=== PATIENT | female | born 1945 | race Caucasian/White ===

== ENCOUNTER 2025-01-19 13:30 | Inpatient (IN) | payer MEDICARE, BC ==
--- NOTE | 2025-01-19 14:13 | ED ---
General Adult HPI - General Stated complaint: Vomiting Time Seen by Provider: 01/19/25 13:35 Source: patient, RN notes reviewed, old records reviewed - History of Present Illness Initial comments: This is an 79-year-old female who presents to the emergency department with her daughter. I saw the patient in the waiting room because there were no rooms available. Patient comes in complaining of vomiting since Saturday. Patient states she was seen at another hospital yesterday was given fluids and antiemetics and she felt better and went home however today she continues to vomit all day and states that she has abdominal pain that is diffuse throughout her abdomen. Patient states she had no imaging done yesterday. Patient denies any fevers or chills patient denies back pain. Patient states she has had multiple surgeries on her abdomen in the past. Has had a cholecystectomy appendectomy and hysterectomy. Patient denies any diarrhea. Daughter mentions the patient has Parkinson's and had a history of lymphoma. - Related Data Home Medications Medication Instructions Recorded Confirmed Fish Oil/Dha/Epa [Fish Oil 1,200 1,200 mg PO AC-LUNCH 04/06/14 04/06/14 mg Fish Oil] Lisinopril-Hctz 20-12.5 mg 1 each PO DAILY 04/06/14 04/06/14 [Zestoretic 20-12.5] Omeprazole [PriLOSEC] 20 mg PO AC-BRKFST 04/06/14 04/06/14 Rivaroxaban [Xarelto] 20 mg PO DAILY 04/06/14 04/06/14 Previous Rx's Medication Instructions Recorded Flecainide [Tambocor] 100 mg PO Q12HR #30 tab 04/08/14 atenoloL [Tenormin] 25 mg PO TID #60 tab 04/08/14 Allergies Allergy/AdvReac Type Severity Reaction Status Date / Time azithromycin AdvReac Rapid Verified 01/19/25 14:38 Heart Rate cephalexin monohydrate AdvReac Nausea & Verified 01/19/25 14:38 [From Keflex] Vomiting Review of Systems ROS Statement: Those systems with pertinent positive or pertinent negative responses have been documented in the HPI. ROS Other: All systems not noted in ROS Statement are negative. Past Medical History Past Medical History: A-Fib/A-Flutter, Chest Pain / Angina, GERD/Reflux, Hypertension, Syncope History of Any Multi-Drug Resistant Organisms: None Reported Past Surgical History: Adenoidectomy, AICD/Pacemaker, Section, Heart Catheterization, Hysterectomy, Tonsillectomy Additional Past Anesthesia/Blood Transfusion Reaction / Comment(s): N/A Type of Cardiac Device: Permanent Pacemaker Device Placement Date:: March 2014 Past Psychological History: No Psychological Hx Reported Past Alcohol Use History: None Reported Past Drug Use History: None Reported - Past Family History Mother Family Medical History: Cancer, Hyperlipidemia, Hypertension, Vascular Disorder General Exam - General Exam Comments Initial Comments: GENERAL: Patient is well-developed and well-nourished. Patient is nontoxic and well- hydrated and is in no acute distress. ENT: Neck is soft and supple. No significant lymphadenopathy is noted. Oropharynx is clear. Moist mucous membranes. Neck has full range of motion without eliciting any pain. EYES: The sclera were anicteric and conjunctiva were pink and moist. Extraocular movements were intact and pupils were equal round and reactive to light. Eyelids were unremarkable. PULMONARY: Unlabored respirations. Good breath sounds bilaterally. No audible rales rhonchi or wheezing was noted. CARDIOVASCULAR: There is a regular rate and rhythm without any murmurs gallops or rubs. ABDOMEN: Diffuse abdominal tenderness SKIN: Skin is clear with no lesions or rashes and otherwise unremarkable. NEUROLOGIC: Patient is alert and oriented x3. Cranial nerves II through XII are grossly intact. Motor and sensory are also intact. Normal speech, volume and content. Symmetrical smile. MUSCULOSKELETAL: Normal extremities with adequate strength and full range of motion. LYMPHATICS: No significant lymphadenopathy is noted PSYCHIATRIC: Normal psychiatric evaluation. Course Vital Signs 01/19/25 14:33 Temperature 97.9 F Pulse Rate 87 Respiratory 20 Rate Blood Pressure 129/69 O2 Sat by Pulse 97 Oximetry Medical Decision Making - Medical Decision Making Was pt. sent in by a medical professional or institution (, PA, RENEWABLE ENERGY CONSULTANT, urgent care, hospital, or correction...) When possible be specific @ -No Did you speak to anyone other than the patient for history (EMS, parent, family, police, friend...)? What history was obtained from this source @ -Daughter gave quite a bit of the history for her mother. Informed us of yesterday's visit to another hospital and the results from that visit Did you review nursing and triage notes (agree or disagree)? Why? @ -I reviewed and agree with nursing and triage notes Were old charts reviewed (outside hosp., previous admission, EMS record, old EKG, old radiological studies, urgent care reports/EKG's, correction records)? Report findings @ -No old charts were reviewed Differential Diagnosis? @ -Differential Abdominal Pain Men: Appendicitis, cholecystitis, diverticulosis, ischemic bowel, pancreatitis, hepatitis, UTI, gastroenteritis, AAA, incarcerated hernia, bowel obstruction, constipation, inflammatory bowel, hepatitis, peptic ulcer disease, splenic infarction, perforated viscus, testicular torsion, this is not meant to be an all-inclusive list EKG interpreted by me (3pts min.). @ -As above X-rays interpreted by me (1pt min.). @ -None done CT interpreted by me (1pt min.). @ -CT of the abdomen pelvis shows a bowel obstruction with a possible mass or inflammation causing the obstruction U/S interpreted by me (1pt. min.). @ -None done What testing was considered but not performed or refused? (CT, X-rays, U/S, labs)? Why? @ -None What meds were considered but not given or refused? Why? @ -None Did you discuss the management of the patient with other professionals (professionals i.e. , PA, RENEWABLE ENERGY CONSULTANT, lab, RT, psych nurse, social service technician, luncheonette operator, teacher, special officer, leather case finisher)? Give summary @ -I spoke with sound physicians agreed to admit the patient admit the patient I consulted surgery Was smoking cessation discussed for >3mins.? @ -No Was critical care preformed (if so, how long)? @ -No Were there social determinants of health that impacted care today? How? (Homelessness, low income, unemployed, alcoholism, drug addiction, transporta tion, low edu. Level, literacy, decrease access to med. care, nursing home, rehab)? @ -No Was there de-escalation of care discussed even if they declined (Discuss DNR or withdrawal of care, Hospice)? DNR status @ -No What co-morbidities impacted this encounter? (DM, HTN, Smoking, COPD, CAD, Cancer, CVA, ARF, Chemo, Hep., AIDS, mental health diagnosis, sleep apnea, morbid obesity)? @ -None Was patient admitted / discharged? Hospital course, mention meds given and route, prescriptions, significant lab abnormalities, going to OR and other pertinent info. @ -Patient had a bowel obstruction on CAT scan so an NG tube was placed patient was given some Reglan for the nausea. And patient will be admitted to [facility] with a surgical consult Undiagnosed new problem with uncertain prognosis? @ -No Drug Therapy requiring intensive monitoring for toxicity (Heparin, Nitro, Insulin, Cardizem)? @ -No Were any procedures done? @ -No Diagnosis/symptom? @ -Small bowel obstruction Acute, or Chronic, or Acute on Chronic? @ -Acute Uncomplicated (without systemic symptoms) or Complicated (systemic symptoms)? @ -Complicate Side effects of treatment? @ -No Exacerbation, Progression, or Severe Exacerbation? @ -No Poses a threat to life or bodily function? How? (Chest pain, [place], [place], pneumonia, PE, COPD, DKA, ARF, appy, cholecystitis, CVA, Diverticulitis, Homicidal, Suicidal, threat to staff... and all critical care pts) @ -Yes this can lead to severe dehydration and perforation - Lab Data Result diagrams: 01/19/25 15:13 01/19/25 15:13 Lab Results 01/19/25 01/19/25 Range/Units 15:13 15:13 WBC 9.4 (3.8-10.6) k/uL RBC 4.91 (3.80-5.40) m/uL Hgb 15.2 (11.4-16.0) gm/dL Hct 41.9 (34.0-46.0) % MCV 85.3 (80.0-100.0) fL MCH 30.9 (25.0-35.0) pg MCHC 36.3 (31.0-37.0) g/dL RDW 12.5 (11.5-15.5) % Plt Count 158 (150-450) k/uL MPV 7.8 Neutrophils % 87 % Lymphocytes % 5 % Monocytes % 7 % Eosinophils % 1 % Basophils % 0 % Neutrophils # 8.2 H (1.3-7.7) k/uL Lymphocytes # 0.5 L (1.0-4.8) k/uL Monocytes # 0.6 (0-1.0) k/uL Eosinophils # 0.1 (0-0.7) k/uL Basophils # 0.0 (0-0.2) k/uL Sodium 133 L (137-145) mmol/L Potassium 3.9 (3.5-5.1) mmol/L Chloride 92 L (98-107) mmol/L Carbon Dioxide 28 (22-30) mmol/L Anion Gap 13 mmol/L BUN 53 H (7-17) mg/dL Creatinine 0.92 (0.52-1.04) mg/dL Est GFR (CKD-EPI)AfAm 68 (>60 ml/min/1.73 sqM) Est GFR (CKD-EPI)NonAf 59 (>60 ml/min/1.73 sqM) Glucose 140 H (74-99) mg/dL Calcium 9.7 (8.4-10.2) mg/dL Total Bilirubin 1.5 H (0.2-1.3) mg/dL AST 35 (14-36) U/L ALT 22 (4-34) U/L Alkaline Phosphatase 57 (38-126) U/L Total Protein 7.9 (6.3-8.2) g/dL Albumin 4.9 (3.5-5.0) g/dL Amylase 80 (30-110) U/L Lipase 218 (23-300) U/L Disposition Clinical Impression: Small bowel obstruction Disposition: ADMITTED IP TO THIS [facility] Referrals: Nathaniel Bermudez MD [Primary Care Provider] - 1-2 days Time of Disposition: 16:26
--- NOTE | 2025-01-19 15:41 | CT ---
EXAMINATION TYPE: CT abdomen pelvis wo con DATE OF EXAM: 01/19/2025 COMPARISON: None CLINICAL INDICATION: Female, 79 years old with history of abdominal pain; PHH, ABDOMINAL PAIN, N,V TECHNIQUE: CT scan of the abdomen and pelvis is performed without oral or IV contrast. CT DLP: 326.[address] CTDI: mGy Automated exposure control for dose reduction was used. FINDINGS: Within the limitations of a non-contrast study, the following observations are made. The lungs are clear. There is surgical absence of the gallbladder. There is no biliary ductal dilatation. There is no organomegaly of the liver, pancreas, spleen or adrenal glands. There are no renal calcifications or hydronephrosis. The caliber of the abdominal aorta is normal and there is no retroperitoneal adenopathy or hemorrhage . The stomach is markedly distended with air and fluid. There are multiple small bowel loops distended with air and fluid down to the level of the pelvis where there is approximately 5 cm segment of marke dly thickened small bowel and appears to be the point of obstruction. Thickened loop is nonspecific a nd could be neoplastic or inflammatory in nature. There is no inflammatory change in the surrounding mesentery. Raising the suspicion for neoplasm. There is no pelvic mass, free fluid, abscess or adenopathy. There is marked degenerative disease at the L3-4 level. There is an ill-defined 8.5 linear sclerotic density in the upper sacrum. IMPRESSION: 1. Marked Distal small bowel obstruction secondary to a 5 cm segment of thickened small bowel wall po ssibly neoplastic or inflammatory in nature. 2. 8.5 mm sclerotic density in the upper sacrum which could represent a small bone island but if ther e is a primary neoplasm could represent metastatic disease. [facility], , 01/19/2025 3:39 PM
[2025-01-19 15:48] LABS: Basophils % (A) 0 %; Eosinophils # (A) 0.1 k/uL (0-0.7); Eosinophils % (A) 1 %; HCT 41.9 % (34.0-46.0); HGB 15.2 gm/dL (11.4-16.0); Lymphocytes # (A) 0.5 k/uL (1.0-4.8); Lymphocytes % (A) 5 %; MCH 30.9 pg (25.0-35.0); MCHC 36.3 g/dL (31.0-37.0); MCV 85.3 fL (80.0-100.0); Mean Platelet Volume 7.8; Monocytes # (A) 0.6 k/uL (0-1.0); Monocytes % (A) 7 %; Neutrophils # (A) 8.2 k/uL (1.3-7.7); Neutrophils % (A) 87 %; Platelet Count 158 k/uL (150-450); RBC 4.91 m/uL (3.80-5.40); RDW 12.5 % (11.5-15.5); WBC 9.4 k/uL (3.8-10.6)
[2025-01-19 15:55] LABS: ALT 22 U/L (4-34); AST 35 U/L (14-36); African American GFR (CKD) 68 (>60 ml/min/1.73 sqM); Albumin 4.9 g/dL (3.5-5.0); Alkaline Phosphatase 57 U/L (38-126); Amylase 80 U/L (30-110); Anion Gap 13 mmol/L; Blood Urea Nitrogen 53 mg/dL (7-17); Calcium 9.7 mg/dL (8.4-10.2); Carbon Dioxide 28 mmol/L (22-30); Chloride 92 mmol/L (98-107); Glucose 140 mg/dL (74-99); Lipase 218 U/L (23-300); Non-African American GFR(CKD) 59 (>60 ml/min/1.73 sqM); Potassium 3.9 mmol/L (3.5-5.1); Sodium 133 mmol/L (137-145); Total Bilirubin 1.5 mg/dL (0.2-1.3); Total Protein 7.9 g/dL (6.3-8.2)
--- NOTE | 2025-01-19 16:40 | XR ---
EXAMINATION TYPE: XR chest 1V confirm line plcmt DATE OF EXAM: 01/19/2025 4:35 PM COMPARISON: CT abdomen and pelvis 01/19/2025 TECHNIQUE: XR chest 1V confirm line plcmt Portable AP radiograph of the chest. CLINICAL INDICATION:Female, 79 years old with history of NG placement; FINDINGS: Lungs/Pleura: There is no evidence of pleural effusion, focal consolidation, or pneumothorax. Pulmonary vascularity: Unremarkable. Heart/mediastinum: Cardiomediastinal silhouette is unremarkable. Atherosclerotic calcifications are seen in the aorta. Two lead cardiac conduction device overlying the left hemithorax with lead tips pr ojecting over the right ventricle and right atrium. Musculoskeletal: No acute osseous pathology. Other findings: None Lines/Tubes: Nasogastric tube with its distal tip and side-port projecting under the diaphragm and projecting over the gastric lumen. IMPRESSION: NG tube in appropriate position. [facility], , 01/19/2025 4:38 PM
[2025-01-19] MEDS: METOCLOPRAMIDE 5 MG/ML 2 ML VIAL IVP STA (16:45)
[2025-01-19] MEDS: SODIUM CHLORIDE 0.9% 1,000 ML IV STA (16:46)
[2025-01-19] MEDS ORDERED: DEXTROSE 50% SYRINGE 50 ML IVP PRN ×2 (17:15)
--- NOTE | 2025-01-19 17:15 | P.HPIM ---
History of Present Illness H&P Date: 01/19/25 History of Presenting Illness: Patient is a pleasant 79-year-old female with a past medical history of atrial fibrillation/flutter no longer on anticoagulation, CAD, AICD placement, hypertension, Parkinson's disease, lymphoma, and GERD. She presented to the emergency department with a chief complaint of intractable nausea and vomiting. Patient reports her last bowel movement was on 01/13/2025 and she began intractable vomiting on 01/15/2025 and has not been able to hold down any food or fluids since. In addition patient reports diffuse abdominal pain worse upon palpation. She denies having any fevers, chills, headache, lightheadedness, dizziness, chest pain, palpitations, shortness of breath, or experiencing any difficulties with her urinary function. Patient denies history of previous bowel obstruction but does report history of chronic constipation. Upon arrival to our facility, patient underwent evaluation in the emergency department. Vital signs upon arrival show blood pressure 129/69, heart rate 87, respiratory rate 20, temp 97.9 F, and SpO2 of 97% on room air. CT abdomen and pelvis was completed showing marked distal small bowel obstruction secondary to a 5 cm segment of thickened small bowel wall possibly neoplastic or inflammatory in nature and an 8.5 mm sclerotic density in the upper sacrum which could represent a small bone island but if there is a primary neoplasm could represent metastatic disease. Labs were completed and reviewed. CBC unremarkable. BMP showing hyponatremia with sodium of 133 and metabolic alkalosis with chloride of 92, bicarb of 28, and anion gap of 13. BUN elevated at 53. Blood glucose 140. Liver profile showing elevated total bili of 1.5 otherwise normal findings. Amylase and lipase normal findings. Patient admitted under services with consultation to general surgery. Review of systems: Pertinent positives and negatives as discussed in HPI, a complete review of systems was performed and all other systems are negative. Physical exam: Vital signs reviewed and stable. General: Nontoxic, no distress and appears stated age. Derm: Skin warm and dry, normal coloration for ethnicity. Head: Atraumatic, normocephalic and symmetric. Eyes: EOM's intact, no lid lag, and anicteric sclera Mouth: no lip lesions, mucus membranes moist Cardiovascular: regular rate and rhythm with normal S1S2, systolic murmur, positive posterior tibial pulses bilaterally, and cap refill < 2 seconds. Lungs: Respirations even, regular, and unlabored on room air. Lungs CTA bilaterally, no rhonchi, no rales, no wheezing, and no accessory muscle usage. Abdominal: soft distended with diffuse tenderness upon palpation , no guarding, no appreciable organomegaly Ext: ROM intact. No gross muscle atrophy, no edema, no contractures Neuro: Speech clear, face symmetrical and CN II-XII grossly intact with no noted focal neuro deficits. Parkinsonian tremor bilateral upper extremities worse in right upper extremity Psych: Alert and oriented to person, place, time, and situation. Appropriate and pleasant affect. Assessment and Plan of Care: Small bowel obstruction Intractable nausea and vomiting, secondary to above General Surgery consulted, discussed in detail with Dr. Veras. -Order placed for insertion of NG tube to low intermittent suction. -Chest x-ray completed to verify placement. -Symptomatic care and pain management. -Compazine 10 mg IVP as needed for nausea or vomiting. -Continue gentle IV fluid hydration with 0.9% normal saline at 100 cc/h. -Glycemic protocol with Accu-Cheks every 6 hours while NPO. Paroxysmal atrial fibrillation/flutter CAD Status post AICD placement -Patient no longer on anticoagulation states she was taken off by her PCP. Continue daily medication regimen with flecainide 100 mg every 12 hours and atenolol 25 mg twice daily. Parkinson's disease -Continue Neupro 8 mg every 24 hour patch transdermally Hypertension -Continue atenolol 25 mg twice daily and lisinoprilhydrochlorothiazide 20-12.5 mg daily. Hyperlipidemia -Continue pravastatin 10 mg daily. Data and imaging reviewed: As stated above in HPI The patient is admitted with an anticipated greater than 2 midnight stay for evaluation of small bowel obstruction CODE STATUS: Full code DVT prophylaxis: Lovenox Discussed with: Patient, patient's daughter, ED physician, and general surgeon Anticipated discharge date: Pending clinical course Anticipated discharge place: Pending clinical course Patient was seen independently by Nurse Practitioner. This document was prepared using [employer] dictation software. Please allow for errors in title insurance examiner while rare they do occur. Leonardo Grover NP rendered care for this patient independently, reviewed the findings and plan as documented in the note above and agree with plan. I did not physically speak with or examine the patient on this date. Past Medical History Past Medical History: A-Fib/A-Flutter, Chest Pain / Angina, GERD/Reflux, Hype rtension, Syncope Additional Past Medical History / Comment(s): lymphoma 2014, bradycardia History of Any Multi-Drug Resistant Organisms: None Reported Past Surgical History: Adenoidectomy, AICD/Pacemaker, Section, Heart Catheterization, Hysterectomy, Tonsillectomy Additional Past Anesthesia/Blood Transfusion Reaction / Comment(s): N/A Type of Cardiac Device: Permanent Pacemaker Device Placement Date:: March 2014 Past Psychological History: No Psychological Hx Reported Past Alcohol Use History: None Reported Past Drug Use History: None Reported - Past Family History Mother Family Medical History: Cancer, Hyperlipidemia, Hypertension, Vascular Disorder Medications and Allergies Home Medications Medication Instructions Recorded Confirmed Type Lisinopril-Hctz 20-12.5 mg 1 tab PO DAILY 04/06/14 01/19/25 History [Zestoretic 20-12.5] Omeprazole [PriLOSEC] 20 mg PO DAILY 04/06/14 01/19/25 History Flecainide [Tambocor] 100 mg PO Q12HR #30 tab 04/08/14 01/19/25 Rx Aspirin EC [Ecotrin Low Dose] 81 mg PO DAILY 01/19/25 01/19/25 History Meclizine [Antivert] 12.5 mg PO TID PRN 01/19/25 01/19/25 History Multivit with Calcium,Iron,Min 1 tab PO DAILY 01/19/25 01/19/25 History [Women's Multivitamin] Ondansetron [Ondansetron ODT] 4 mg PO BID PRN 01/19/25 01/19/25 History Pravastatin Sodium [Pravachol] 10 mg PO DAILY 01/19/25 01/19/25 History Rotigotine (Neupro) 8mg/24 Hour 1 patch TRANSDERM DAILY 01/19/25 01/19/25 History Patch atenoloL [Tenormin] 25 mg PO BID 01/19/25 01/19/25 History Allergies Allergy/AdvReac Type Severity Reaction Status Date / Time azithromycin AdvReac Rapid Verified 01/19/25 17:22 Heart Rate cephalexin monohydrate AdvReac Nausea & Verified 01/19/25 17:22 [From Keflex] Vomiting simvastatin AdvReac Unknown Verified 01/19/25 17:22 Physical Exam Vitals: Vital Signs Temp Pulse Resp BP Pulse Ox 01/19/25 16:40 72 20 116/55 96 01/19/25 14:33 97.9 F 87 20 129/69 97 Intake and Output 01/19/25 01/19/25 01/19/25 06:59 14:59 22:59 Other: Weight 54.431 kg Results CBC & Chem 7: 01/19/25 15:13 01/19/25 15:13 Labs: Abnormal Lab Results - Last 24 Hours (Table) 01/19/25 01/19/25 Range/Units 15:13 15:13 Neutrophils # 8.2 H (1.3-7.7) k/uL Lymphocytes # 0.5 L (1.0-4.8) k/uL Sodium 133 L (137-145) mmol/L Chloride 92 L (98-107) mmol/L BUN 53 H (7-17) mg/dL Glucose 140 H (74-99) mg/dL Total Bilirubin 1.5 H (0.2-1.3) mg/dL
[2025-01-19] MEDS: SODIUM CHLORIDE 0.9% 1,000 ML IV ONE (18:26)
[2025-01-19] MEDS ORDERED: MORPHINE SULFATE 2 MG/ML SYRINGE IV PRN (19:39)
[2025-01-19] MEDS: FLECAINIDE 50 MG TAB PO SCH (21:34)
[2025-01-19] MEDS: atenoloL 25 MG TAB PO SCH (21:34)
[2025-01-20] MEDS: ACETAMINOPHEN IV (For NPO) 1,000 MG in EMPTY BAG 1 BAG IVPB SCH (00:01)
[2025-01-20 00:03] LABS: Glucose,Whole Blood 99 mg/dL (70-110)
[2025-01-20 05:54] LABS: Glucose,Whole Blood 101 mg/dL (70-110)
--- NOTE | 2025-01-20 07:01 | P.GSCN ---
History of Present Illness Reason for Consult: small bowel obstruction History of present illness: patient is an 79-year-old female with a significant past medical history of appendectomy, cholecystectomy, hysterectomy presenting with abdominal pain for the last several days with associated nausea and vomiting. She was seen at an outside facility and they recommended Zofran which did not help. Patient is now presenting to the emergency department for further evaluation. Computed tomography scan of the abdomen and pelvis demonstrates dilated loops of bowel with a specific segment that is thickened. She currently has a nasogastric tube in and feels much better she currently denies nausea, vomiting, fevers, chills, shortness of breath or chest pain. Past Medical History Past Medical History: Chest Pain / Angina, GERD/Reflux, Hypertension, Syncope Additional Past Medical History / Comment(s): lymphoma 2013, bradycardia History of Any Multi-Drug Resistant Organisms: None Reported Past Surgical History: Adenoidectomy, Section, Heart Catheterization, Hysterectomy, Tonsillectomy Additional Past Anesthesia/Blood Transfusion Reaction / Comm: N/A Type of Cardiac Device: Permanent Pacemaker Device Placement Date:: March 2014 Past Psychological History: No Psychological Hx Reported Smoking Status: Never smoker Past Alcohol Use History: None Reported Past Drug Use History: None Reported - Past Family History Mother Family Medical History: Cancer, Hyperlipidemia, Hypertension, Vascular Disorder Medications and Allergies Home Medications Medication Instructions Recorded Confirmed Type Lisinopril-Hctz 20-12.5 mg 1 tab PO DAILY 04/06/14 01/19/25 History [Zestoretic 20-12.5] Omeprazole [PriLOSEC] 20 mg PO DAILY 04/06/14 01/19/25 History Flecainide [Tambocor] 100 mg PO Q12HR #30 tab 04/08/14 01/19/25 Rx Aspirin EC [Ecotrin Low Dose] 81 mg PO DAILY 01/19/25 01/19/25 History Meclizine [Antivert] 12.5 mg PO TID PRN 01/19/25 01/19/25 History Multivit with Calcium,Iron,Min 1 tab PO DAILY 01/19/25 01/19/25 History [Women's Multivitamin] Ondansetron [Ondansetron ODT] 4 mg PO BID PRN 01/19/25 01/19/25 History Pravastatin Sodium [Pravachol] 10 mg PO DAILY 01/19/25 01/19/25 History Rotigotine (Neupro) 8mg/24 Hour 1 patch TRANSDERM DAILY 01/19/25 01/19/25 History Patch atenoloL [Tenormin] 25 mg PO BID 01/19/25 01/19/25 History Allergies Allergy/AdvReac Type Severity Reaction Status Date / Time azithromycin AdvReac Rapid Verified 01/19/25 17:22 Heart Rate cephalexin monohydrate AdvReac Nausea & Verified 01/19/25 17:22 [From Keflex] Vomiting simvastatin AdvReac Unknown Verified 01/19/25 17:22 Surgical - Exam Osteopathic Statement: *. No significant issues noted on an osteopathic structural exam other than those noted in the History and Physical/Consult. Vital Signs Temp Pulse Resp BP Pulse Ox 97.9 F 87 20 129/69 97 01/19/25 14:33 01/19/25 14:33 01/19/25 14:33 01/19/25 14:33 01/19/25 14:33 general no acute distress alert and oriented 3 Cardiovascular regular rate and rhythm Pulmonary nonlabored breathing Abdomen is soft, distended, mildly tender to palpation, no guarding or rebound tenderness Results - Labs 01/19/25 15:13 01/19/25 15:13 Abnormal Lab Results - Last 24 Hours (Table) 01/19/25 01/19/25 Range/Units 15:13 15:13 Neutrophils # 8.2 H (1.3-7.7) k/uL Lymphocytes # 0.5 L (1.0-4.8) k/uL Sodium 133 L (137-145) mmol/L Chloride 92 L (98-107) mmol/L BUN 53 H (7-17) mg/dL Glucose 140 H (74-99) mg/dL Total Bilirubin 1.5 H (0.2-1.3) mg/dL Diabetes panel 01/19/25 Range/Units 15:13 Sodium 133 L (137-145) mmol/L Potassium 3.9 (3.5-5.1) mmol/L Chloride 92 L (98-107) mmol/L Carbon Dioxide 28 (22-30) mmol/L BUN 53 H (7-17) mg/dL Creatinine 0.92 (0.52-1.04) mg/dL Glucose 140 H (74-99) mg/dL Calcium 9.7 (8.4-10.2) mg/dL AST 35 (14-36) U/L ALT 22 (4-34) U/L Alkaline Phosphatase 57 (38-126) U/L Total Protein 7.9 (6.3-8.2) g/dL Albumin 4.9 (3.5-5.0) g/dL Calcium panel 01/19/25 Range/Units 15:13 Calcium 9.7 (8.4-10.2) mg/dL Albumin 4.9 (3.5-5.0) g/dL Pituitary panel 01/19/25 Range/Units 15:13 Sodium 133 L (137-145) mmol/L Potassium 3.9 (3.5-5.1) mmol/L Chloride 92 L (98-107) mmol/L Carbon Dioxide 28 (22-30) mmol/L BUN 53 H (7-17) mg/dL Creatinine 0.92 (0.52-1.04) mg/dL Glucose 140 H (74-99) mg/dL Calcium 9.7 (8.4-10.2) mg/dL Adrenal panel 01/19/25 Range/Units 15:13 Sodium 133 L (137-145) mmol/L Potassium 3.9 (3.5-5.1) mmol/L Chloride 92 L (98-107) mmol/L Carbon Dioxide 28 (22-30) mmol/L BUN 53 H (7-17) mg/dL Creatinine 0.92 (0.52-1.04) mg/dL Glucose 140 H (74-99) mg/dL Calcium 9.7 (8.4-10.2) mg/dL Total Bilirubin 1.5 H (0.2-1.3) mg/dL AST 35 (14-36) U/L ALT 22 (4-34) U/L Alkaline Phosphatase 57 (38-126) U/L Total Protein 7.9 (6.3-8.2) g/dL Albumin 4.9 (3.5-5.0) g/dL Assessment and Plan Assessment: 79-year-old female with a small bowel obstruction continue nasogastric tube suction Decompression for today and small bowel follow-through tomorrow a.m. Okay for ice chips Time with Patient: Greater than 30
[2025-01-20] MEDS: LISINOPRIL-HCTZ 20-12.5 MG 1 EACH TAB PO SCH (11:46)
[2025-01-20] MEDS: ENOXAPARIN 40 MG/0.4 ML SYRINGE SQ SCH (11:47)
[2025-01-20] MEDS: PRAVASTATIN SODIUM 20 MG TAB PO SCH (12:02)
[2025-01-20 12:12] LABS: Glucose,Whole Blood 97 mg/dL (70-110)
[2025-01-20] MEDS: ROTIGOTINE TRANSDERM SCH ×2 (12:23→12:25)
[2025-01-20 18:08] LABS: Glucose,Whole Blood 76 mg/dL (70-110)
--- NOTE | 2025-01-20 18:11 | P.PN ---
Subjective Progress Note Date: 01/20/25 Hospital course: Patient is a pleasant 79-year-old female with a past medical history of atrial fibrillation/flutter no longer on anticoagulation, CAD, AICD placement, hypertension, Parkinson's disease, lymphoma, and GERD. She presented to the emergency department with a chief complaint of intractable nausea and vomiting. Patient reports her last bowel movement was on 01/13/2025 and she began intractable vomiting on 01/15/2025 and has not been able to hold down any food or fluids since. In addition patient reports diffuse abdominal pain worse upon palpation. She denies having any fevers, chills, headache, lightheadedness, dizziness, chest pain, palpitations, shortness of breath, or experiencing any difficulties with her urinary function. Patient denies history of previous bowel obstruction but does report history of chronic constipation. Upon arrival to our facility, patient underwent evaluation in the emergency department. Vital signs upon arrival show blood pressure 129/69, heart rate 87, respiratory rate 20, temp 97.9 F, and SpO2 of 97% on room air. CT abdomen and pelvis was completed showing marked distal small bowel obstruction secondary to a 5 cm segment of thickened small bowel wall possibly neoplastic or inflammatory in nature and an 8.5 mm sclerotic density in the upper sacrum which could represent a small bone island but if there is a primary neoplasm could represent metastatic disease. Labs were completed and reviewed. CBC unremarkable. BMP showing hyponatremia with sodium of 133 and metabolic alkalosis with chloride of 92, bicarb of 28, and anion gap of 13. BUN elevated at 53. Blood glucose 140. Liver profile showing elevated total bili of 1.5 otherwise normal findings. Amylase and lipase normal findings. Patient admitted under services with consultation to general surgery. Physical exam: Patient seen and fully evaluated at bedside this morning. She was sitting up in chair at bedside visiting with her daughter. Patient reports abdominal pain is improving. She denies any further episodes of nausea or vomiting. Denies passing flatus or having a bowel movement. Blood glucose levels 90s, will change IV fluids from normal saline to D5.45. Vital signs reviewed and stable. General: Nontoxic, no distress and appears stated age. Derm: Skin warm and dry, normal coloration for ethnicity. Head: Atraumatic, normocephalic and symmetric. Eyes: EOM's intact, no lid lag, and anicteric sclera Mouth: no lip lesions, mucus membranes moist Cardiovascular: regular rate and rhythm with normal S1S2, systolic murmur, p ositive posterior tibial pulses bilaterally, and cap refill < 2 seconds. Lungs: Respirations even, regular, and unlabored on room air. Lungs CTA bilaterally, no rhonchi, no rales, no wheezing, and no accessory muscle usage. Abdominal: soft distended with tenderness upon palpation to right lower quadrant and epigastric region, no guarding, no appreciable organomegaly. NG tube in place to low intermittent suction. Ext: ROM intact. No gross muscle atrophy, no edema, no contractures Neuro: Speech clear, face symmetrical and CN II-XII grossly intact with no noted focal neuro deficits. Parkinsonian tremor bilateral upper extremities worse in right upper extremity Psych: Alert and oriented to person, place, time, and situation. Appropriate and pleasant affect. Assessment and Plan of Care: Small bowel obstruction Intractable nausea and vomiting, secondary to above General Surgery consulted, discussed in detail with Dr. Veras. -Order placed for insertion of NG tube to low intermittent suction. -Chest x-ray completed to verify placement. -Symptomatic care and pain management. -Compazine 10 mg IVP as needed for nausea or vomiting. -Continue gentle IV fluid hydration with D5.45 at 100 cc/h -Glycemic protocol with Accu-Cheks every 6 hours while NPO. Paroxysmal atrial fibrillation/flutter CAD Status post AICD placement -Patient no longer on anticoagulation states she was taken off by her PCP. Continue daily medication regimen with flecainide 100 mg every 12 hours and atenolol 25 mg twice daily. Parkinson's disease -Continue Neupro 8 mg every 24 hour patch transdermally Hypertension -Continue atenolol 25 mg twice daily and lisinoprilhydrochlorothiazide 20-12.5 mg daily. Hyperlipidemia -Continue pravastatin 10 mg daily. Data and imaging reviewed: Labs reviewed. CBC unremarkable. BMP showing hyponatremia with sodium of 133 and metabolic alkalosis with chloride of 92, bicarb of 28, and anion gap of 13. BUN elevated at 53. Blood glucose 140. Liver profile showing elevated total bili of 1.5 otherwise normal findings. Amylase and lipase normal findings. Vital signs reviewed. Blood pressure 158/70, heart rate 67, respiratory rate 13, temp 98.3 F, and SpO2 of 96% on room air. CODE STATUS: Full code DVT prophylaxis: Lovenox Discussed with: Patient, patient's daughter, and general surgeon Anticipated discharge date: Pending clinical course Anticipated discharge place: Pending clinical course Patient was seen independently by Nurse Practitioner. This document was prepared using [employer] dictation software. Please allow for errors in transfer agent while rare they do occur. Leonardo Grover VESSEL MANAGER rendered care for this patient independently, reviewed the findings and plan as documented in the note above and agree with plan. I did not physically speak with or examine the patient on this date. Objective - Vital Signs Vital signs: Vital Signs Temp 98.3 F 01/20/25 07:30 Pulse 67 01/20/25 07:30 Resp 13 01/20/25 07:30 BP 158/70 01/20/25 07:30 Pulse Ox 96 01/20/25 07:30 FiO2 Intake & Output 01/19/25 01/20/25 01/20/25 18:59 06:59 18:59 Output Total 100 Balance -100 Weight 54.431 kg 54.431 kg Output: Gastric Drainage 100 Other: # Voids 1 - Labs CBC & Chem 7: 01/19/25 15:13 01/19/25 15:13 Labs: Abnormal Lab Results - Last 24 Hours (Table) 01/19/25 01/19/25 Range/Units 15:13 15:13 Neutrophils # 8.2 H (1.3-7.7) k/uL Lymphocytes # 0.5 L (1.0-4.8) k/uL Sodium 133 L (137-145) mmol/L Chloride 92 L (98-107) mmol/L BUN 53 H (7-17) mg/dL Glucose 140 H (74-99) mg/dL Total Bilirubin 1.5 H (0.2-1.3) mg/dL
[2025-01-20] MEDS: DEXTROSE 5%-0.45% NACL 1,000 ML IV SCH (18:17)
[2025-01-21 00:07] LABS: Glucose,Whole Blood 117 mg/dL (70-110)
[2025-01-21 06:09] LABS: Glucose,Whole Blood 124 mg/dL (70-110)
[2025-01-21 09:11] LABS: HCT 34.5 % (37.2-46.3); HGB 11.7 g/dL (12.0-15.0); MCH 29.3 pg (27.0-32.0); MCHC 33.9 g/dL (32.0-37.0); MCV 86.3 FL (80.0-97.0); Mean Platelet Volume 10.9 FL (9.5-12.2); NRBC Per 100 WBC 0 X 10*3/uL (0.00-0.01); Platelet Count 174 X 10*3/uL (140-440); RDW 12.5 % (11.5-14.5); WBC 6.94 X 10*3/uL (4.50-10.00)
[2025-01-21 09:29] LABS: ALT 13 U/L (8-44); AST 22 U/L (13-35); Albumin 3.6 g/dL (3.8-4.9); Albumin/Globulin Ratio 1.89 Ratio (1.60-3.17); Alkaline Phosphatase 49 U/L (41-126); BUN/Creat Ratio 38.88 Ratio (12.00-20.00); Blood Urea Nitrogen 31.1 mg/dL (9.0-27.0); Calcium 8.5 mg/dL (8.7-10.3); Carbon Dioxide 28.7 mmol/L (21.6-31.8); Chloride 100 mmol/L (96-109); Globulin 1.9 g/dL (1.6-3.3); Glucose 125 mg/dL (70-110); Magnesium 2.1 mg/dL (1.5-2.4); Potassium 3.1 mmol/L (3.5-5.5); Sodium 138 mmol/L (135-145); Total Bilirubin 0.7 mg/dL (0.3-1.2); Total Protein 5.5 g/dL (6.2-8.2)
[2025-01-21 12:14] LABS: Glucose,Whole Blood 134 mg/dL (70-110)
[2025-01-21] MEDS: PROCHLORPERAZINE INJ 10 MG/2 ML VIAL IVP PRN (12:20)
[2025-01-21] MEDS: POTASSIUM CHLORIDE 40 MEQ in WATER FOR INJECTION 1 100ML.BAG IVPB STA (12:26)
--- NOTE | 2025-01-21 14:41 | FL ---
EXAMINATION TYPE: FL small bowel follow through DATE OF EXAM: 01/21/2025 COMPARISON: CT 01/19/2025 CLINICAL INDICATION: Female, 79 years old with history of follow up on SBO; PHH, distention and pain TECHNIQUE: A single contrast small bowel follow through is performed utilizing barium. 12 images are submitted. Total fluoroscopy time: None. Serial abdominal radiographs were obtained. FINDINGS: [employer] image of the abdomen shows small bowel in the upper abdomen dilated up to 4.1 cm. In comparison to 4.[address] of 01/19/2025. Cholecystectomy clips. Of note, the NG tube is short, tip just above t he junction. It be further advanced into the stomach. The small bowel study shows mildly delayed transit to colon at 3.5 hours. Upper abdominal small bowel loops are dilated up to 4.5 cm. Stomach is also dilated. Incidental diver ticulum of the second portion of the duodenum. The lower small bowel loops showing more normal caliber. Unable to clearly identify the transition po int. At 2.5 hours, the patient had to be returned to her room due to nausea and vomiting. IMPRESSION: 1. Mildly delayed small bowel transit time with upper and mid abdominal small bowel loops dilated up to 4.5 cm. The stomach is also dilated. As contrast has made it to the colon at 3.5 hours, we suspect a resolving small bowel obstruction. Appropriate follow-up recommended. 2. Note that the NG tube is short, tip just above the GE junction. Consider further advancement into the stomach. [facility], , 01/21/2025 2:39 PM
--- NOTE | 2025-01-21 14:59 | P.PN ---
Subjective Progress Note Date: 01/21/25 SURGICAL PROGRESS NOTE CHIEF COMPLAINT: Small bowel obstruction HISTORY OF PRESENT ILLNESS: Patient is lethargic after the small bowel follow- through. After the imaging patient was having multiple episodes of vomiting. She received Compazine. The vomiting has stopped. She was vomiting past NG tube. NG tube with only 100 mL output through the night. Small bowel follow- through completed results reported mildly delayed small bowel transit time with upper and mid abdominal small bowel loops dilated up to 4.5 cm. Stomach also dilated. Contrast has made it to the colon at 3.5 hours. Suspect resolving small bowel obstruction. NG tube is short just above GE junction. Nursing staff is advancing NG tube. Afebrile. WBC is 6.94 Hgb 11.7 potassium is 3.1 PHYSICAL EXAM: VITAL SIGNS: Reviewed. GENERAL: Lethargic ABDOMEN: Soft. Stomach is distended. Mild tenderness with palpation diffuse. No guarding. No rebound. ASSESSMENT: 1. Small bowel obstruction. Small bowel follow-through reporting suspected resolving small bowel obstruction PLAN: -Continue NG tube for decompression -Continue antiemetics -Continue IV fluids -Potassium is being replaced -Continue to monitor Physician Chef Concierge note has been reviewed by physician. Signing provider agrees with the documented findings, assessment, and plan of care. Objective - Vital Signs Vital signs: Vital Signs Temp 98.3 F 01/21/25 11:20 Pulse 78 01/21/25 11:20 Resp 16 01/21/25 11:20 BP 174/79 01/21/25 11:20 Pulse Ox 99 01/21/25 11:20 FiO2 Intake & Output 01/20/25 01/21/25 01/21/25 18:59 06:59 18:59 Intake Total 240 Output Total 100 Balance 240 -100 Intake: Oral 240 Output: Gastric Drainage 100 Other: # Voids 3 2 5 - Labs CBC & Chem 7: 01/21/25 05:16 01/21/25 05:16 Labs: Abnormal Lab Results - Last 24 Hours (Table) 01/21/25 01/21/25 01/21/25 Range/Units 00:05 05:16 05:16 RBC 4.00 L (4.10-5.20) X 10*6/uL Hgb 11.7 L (12.0-15.0) g/dL Hct 34.5 L (37.2-46.3) % Potassium 3.1 L (3.5-5.5) mmol/L BUN 31.1 H (9.0-27.0) mg/dL BUN/Creatinine Ratio 38.88 H (12.00-20.00) Ratio Glucose 125 H (70-110) mg/dL POC Glucose (mg/dL) 117 H (70-110) mg/dL Calcium 8.5 L (8.7-10.3) mg/dL Total Protein 5.5 L (6.2-8.2) g/dL Albumin 3.6 L (3.8-4.9) g/dL 01/21/25 01/21/25 Range/Units 06:07 12:12 RBC (4.10-5.20) X 10*6/uL Hgb (12.0-15.0) g/dL Hct (37.2-46.3) % Potassium (3.5-5.5) mmol/L BUN (9.0-27.0) mg/dL BUN/Creatinine Ratio (12.00-20.00) Ratio Glucose (70-110) mg/dL POC Glucose (mg/dL) 124 H 134 H (70-110) mg/dL Calcium (8.7-10.3) mg/dL Total Protein (6.2-8.2) g/dL Albumin (3.8-4.9) g/dL
[2025-01-21 17:26] LABS: Glucose,Whole Blood 111 mg/dL (70-110)
--- NOTE | 2025-01-21 18:40 | P.PN ---
Subjective Progress Note Date: 01/21/25 Hospital course: Patient is a pleasant 79-year-old female with a past medical history of atrial fibrillation/flutter no longer on anticoagulation, CAD, AICD placement, hypertension, Parkinson's disease, lymphoma, and GERD. She presented to the emergency department with a chief complaint of intractable nausea and vomiting. Patient reports her last bowel movement was on 01/13/2025 and she began intractable vomiting on 01/15/2025 and has not been able to hold down any food or fluids since. In addition patient reports diffuse abdominal pain worse upon palpation. She denies having any fevers, chills, headache, lightheadedness, dizziness, chest pain, palpitations, shortness of breath, or experiencing any difficulties with her urinary function. Patient denies history of previous bowel obstruction but does report history of chronic constipation. Upon arrival to our facility, patient underwent evaluation in the emergency department. Vital signs upon arrival show blood pressure 129/69, heart rate 87, respiratory rate 20, temp 97.9 F, and SpO2 of 97% on room air. CT abdomen and pelvis was completed showing marked distal small bowel obstruction secondary to a 5 cm segment of thickened small bowel wall possibly neoplastic or inflammatory in nature and an 8.5 mm sclerotic density in the upper sacrum which could represent a small bone island but if there is a primary neoplasm could represent metastatic disease. Labs were completed and reviewed. CBC unremarkable. BMP showing hyponatremia with sodium of 133 and metabolic alkalosis with chloride of 92, bicarb of 28, and anion gap of 13. BUN elevated at 53. Blood glucose 140. Liver profile showing elevated total bili of 1.5 otherwise normal findings. Amylase and lipase normal findings. Patient admitted under services with consultation to general surgery. Physical exam: Patient seen and fully evaluated at bedside upon return from small bowel follow- through. Patient reports feeling miserable at this time. She reports diffuse abdominal pain and has had severe nausea with 4 episodes of projectile vomiting since returning from procedure. Patient provided with pain medication and antiemetic by RN. Discussed plan of care with patient's daughter at bedside and all questions answered at this time. Called and notified general surgery PA of patient's complaints since returning from small bowel follow-through. NG tube remains in place. Vital signs reviewed and stable. General: Nontoxic, no distress and appears stated age. Derm: Skin warm and dry, normal coloration for ethnicity. Head: Atraumatic, normocephalic and symmetric. Eyes: EOM's intact, no lid lag, and anicteric sclera Mouth: no lip lesions, mucus membranes moist Cardiovascular: regular rate and rhythm with normal S1S2, systolic murmur, positive posterior tibial pulses bilaterally, and cap refill < 2 seconds. Lungs: Respirations even, regular, and unlabored on room air. Lungs CTA bilaterally, no rhonchi, no rales, no wheezing, and no accessory muscle usage. Abdominal: soft distended with tenderness upon palpation to right lower quadrant and epigastric region, no guarding, no appreciable organomegaly. NG tube in place to low intermittent suction. Ext: ROM intact. No gross muscle atrophy, no edema, no contractures Neuro: Speech clear, face symmetrical and CN II-XII grossly intact with no noted focal neuro deficits. Parkinsonian tremor bilateral upper extremities worse in right upper extremity Psych: Alert and oriented to person, place, time, and situation. Appropriate and pleasant affect. Assessment and Plan of Care: Small bowel obstruction Intractable nausea and vomiting, secondary to above General Surgery following, discussed in detail with general surgery PA. -Continue NG tube to low intermittent suction. -Patient underwent small bowel follow-through, awaiting completion of x-rays and report. -Symptomatic care and pain management. -Compazine 10 mg IVP as needed for nausea or vomiting. -Continue gentle IV fluid hydration with D5.45 at 100 cc/h -Glycemic protocol with Accu-Cheks every 6 hours while NPO. Paroxysmal atrial fibrillation/flutter CAD Status post AICD placement -Patient no longer on anticoagulation states she was taken off by her PCP. Continue daily medication regimen with flecainide 100 mg every 12 hours and atenolol 25 mg twice daily. DVT prophylaxis with Lovenox. Parkinson's disease -Continue Neupro 8 mg every 24 hour patch transdermally Hypertension -Continue atenolol 25 mg twice daily and lisinoprilhydrochlorothiazide 20-12.5 mg daily. Hyperlipidemia -Continue pravastatin 10 mg daily. Data and imaging reviewed: Labs reviewed. CBC normocytic anemia with hemoglobin of 11.7. BMP showing hypokalemia with potassium of 3.1, mild prerenal azotemia with BUN of 31.1. Blood glucose 125. Magnesium 2.1. Liver profile unremarkable with exception of hypoalbuminemia with albumin of 3.6. Vital signs reviewed. Blood pressure 174/79, heart rate 78, respiratory rate 16, temp 98.3 F, and SpO2 of 99% on room air. CODE STATUS: Full code DVT prophylaxis: Lovenox Discussed with: Patient, patient's daughter, and general surgery PA Anticipated discharge date: Pending clinical course Anticipated discharge place: Pending clinical course Patient was seen independently by Nurse Practitioner. This document was prepared using [employer] dictation software. Please allow for errors in realtime reporter while rare they do occur. Leonardo Grover NP rendered care for this patient independently, reviewed the findings and plan as documented in the note above and agree with plan. I did not physically speak with or examine the patient on this date. Objective - Vital Signs Vital signs: Vital Signs Temp 98.1 F 01/21/25 06:53 Pulse 68 01/21/25 06:53 Resp 16 01/21/25 06:53 BP 186/70 01/21/25 06:53 Pulse Ox 98 01/21/25 06:53 FiO2 Intake & Output 01/20/25 01/21/25 01/21/25 18:59 06:59 18:59 Intake Total 240 Output Total 100 Balance 240 -100 Intake: Oral 240 Output: Gastric Drainage 100 Other: # Voids 3 2 - Labs CBC & Chem 7: 01/21/25 05:16 01/21/25 05:16 Labs: Abnormal Lab Results - Last 24 Hours (Table) 01/21/25 01/21/25 01/21/25 Range/Units 00:05 05:16 05:16 RBC 4.00 L (4.10-5.20) X 10*6/uL Hgb 11.7 L (12.0-15.0) g/dL Hct 34.5 L (37.2-46.3) % Potassium 3.1 L (3.5-5.5) mmol/L BUN 31.1 H (9.0-27.0) mg/dL BUN/Creatinine Ratio 38.88 H (12.00-20.00) Ratio Glucose 125 H (70-110) mg/dL POC Glucose (mg/dL) 117 H (70-110) mg/dL Calcium 8.5 L (8.7-10.3) mg/dL Total Protein 5.5 L (6.2-8.2) g/dL Albumin 3.6 L (3.8-4.9) g/dL 01/21/25 Range/Units 06:07 RBC (4.10-5.20) X 10*6/uL Hgb (12.0-15.0) g/dL Hct (37.2-46.3) % Potassium (3.5-5.5) mmol/L BUN (9.0-27.0) mg/dL BUN/Creatinine Ratio (12.00-20.00) Ratio Glucose (70-110) mg/dL POC Glucose (mg/dL) 124 H (70-110) mg/dL Calcium (8.7-10.3) mg/dL Total Protein (6.2-8.2) g/dL Albumin (3.8-4.9) g/dL
[2025-01-21] MEDS ORDERED: ZINC OXIDE PASTE (Z-GUARD) 1 APPLIC TOPICAL PRN (19:49)
[2025-01-22 00:07] LABS: Glucose,Whole Blood 140 mg/dL (70-110)
[2025-01-22] MEDS: ACETAMINOPHEN IV (For NPO) 1,000 MG in EMPTY BAG 1 BAG IVPB SCH (01:14)
[2025-01-22 06:11] LABS: Glucose,Whole Blood 143 mg/dL (70-110)
[2025-01-22 10:52] LABS: HCT 32.9 % (37.2-46.3); HGB 10.8 g/dL (12.0-15.0); MCH 28.9 pg (27.0-32.0); MCHC 32.8 g/dL (32.0-37.0); NRBC Per 100 WBC 0 X 10*3/uL (0.00-0.01); Platelet Count 171 X 10*3/uL (140-440); RBC 3.74 X 10*6/uL (4.10-5.20); RDW 12.6 % (11.5-14.5); WBC 7.43 X 10*3/uL (4.50-10.00)
[2025-01-22 10:56] LABS: ALT 13 U/L (8-44); AST 18 U/L (13-35); Albumin 3.4 g/dL (3.8-4.9); Albumin/Globulin Ratio 1.79 Ratio (1.60-3.17); Alkaline Phosphatase 45 U/L (41-126); BUN/Creat Ratio 31.25 Ratio (12.00-20.00); Calcium 8.3 mg/dL (8.7-10.3); Chloride 106 mmol/L (96-109); Globulin 1.9 g/dL (1.6-3.3); Glucose 147 mg/dL (70-110); Potassium 3.6 mmol/L (3.5-5.5); Sodium 141 mmol/L (135-145); Total Bilirubin 0.5 mg/dL (0.3-1.2); Total Protein 5.3 g/dL (6.2-8.2)
[2025-01-22 11:50] LABS: Glucose,Whole Blood 133 mg/dL (70-110)
--- NOTE | 2025-01-22 13:44 | P.PN ---
Subjective Progress Note Date: 01/22/25 SURGICAL PROGRESS NOTE CHIEF COMPLAINT: Small bowel obstruction HISTORY OF PRESENT ILLNESS: Patient is sitting up in bed. She reports some mild discomfort across the abdomen. She did have diarrhea yesterday. She has had no further stool or flatus today. The nausea has resolved. She had 825 mL output through NG tube yesterday and 450 this morning. Small bowel follow-through completed results reported mildly delayed small bowel transit time with upper and mid abdominal small bowel loops dilated up to 4.5 cm. Stomach also dilated. Contrast has made it to the colon at 3.5 hours. Suspect resolving small bowel obstruction. Nursing staff advanced NG tube. Afebrile. WBC is 7.43 Hgb 10.8 potassium 3.6 PHYSICAL EXAM: VITAL SIGNS: Reviewed. GENERAL: Awake and alert. No acute distress ABDOMEN: Soft. Nondistended. Mild tenderness across mid abdomen ASSESSMENT: 1. Small bowel obstruction. Small bowel follow-through reporting suspected resolving small bowel obstruction 2. Prior history of abdominal surgeries PLAN: -Continue NG tube for decompression -Continue antiemetics -Continue IV fluids -Continue to monitor -Encourage patient to increase activity level Physician Flask Pusher note has been reviewed by physician. Signing provider agrees with the documented findings, assessment, and plan of care. Objective - Vital Signs Vital signs: Vital Signs Temp 97.5 F L 01/22/25 12:38 Pulse 67 01/22/25 12:38 Resp 15 01/22/25 12:38 BP 133/68 01/22/25 12:38 Pulse Ox 97 01/22/25 12:38 FiO2 Intake & Output 01/21/25 01/22/25 01/22/25 18:59 06:59 18:59 Output Total 825 800 Balance -825 -800 Output: Gastric Drainage 825 450 Urine 350 Other: # Voids 5 1 # Bowel Movements 8 1 - Labs CBC & Chem 7: 01/22/25 04:31 01/22/25 04:31 Labs: Abnormal Lab Results - Last 24 Hours (Table) 01/21/25 01/22/25 01/22/25 Range/Units 17:10 00:06 04:31 RBC 3.74 L (4.10-5.20) X 10*6/uL Hgb 10.8 L (12.0-15.0) g/dL Hct 32.9 L (37.2-46.3) % BUN/Creatinine Ratio (12.00-20.00) Ratio Glucose (70-110) mg/dL POC Glucose (mg/dL) 111 H 140 H (70-110) mg/dL Calcium (8.7-10.3) mg/dL Total Protein (6.2-8.2) g/dL Albumin (3.8-4.9) g/dL 01/22/25 01/22/25 01/22/25 Range/Units 04:31 06:03 11:49 RBC (4.10-5.20) X 10*6/uL Hgb (12.0-15.0) g/dL Hct (37.2-46.3) % BUN/Creatinine Ratio 31.25 H (12.00-20.00) Ratio Glucose 147 H (70-110) mg/dL POC Glucose (mg/dL) 143 H 133 H (70-110) mg/dL Calcium 8.3 L (8.7-10.3) mg/dL Total Protein 5.3 L (6.2-8.2) g/dL Albumin 3.4 L (3.8-4.9) g/dL Assessment and Plan Assessment: having bowel function, will remove nasogastric tube and observe Time with Patient: Less than 30
[2025-01-22 14:19] VITALS: BMI 23.4
--- NOTE | 2025-01-22 17:10 | P.PN ---
Subjective Progress Note Date: 01/22/25 Hospital course: Patient is a pleasant 79-year-old female with a past medical history of atrial fibrillation/flutter no longer on anticoagulation, CAD, AICD placement, hypertension, Parkinson's disease, lymphoma, and GERD. She presented to the emergency department with a chief complaint of intractable nausea and vomiting. Patient reports her last bowel movement was on 01/13/2025 and she began intractable vomiting on 01/15/2025 and has not been able to hold down any food or fluids since. In addition patient reports diffuse abdominal pain worse upon palpation. She denies having any fevers, chills, headache, lightheadedness, dizziness, chest pain, palpitations, shortness of breath, or experiencing any difficulties with her urinary function. Patient denies history of previous bowel obstruction but does report history of chronic constipation. Upon arrival to our facility, patient underwent evaluation in the emergency department. Vital signs upon arrival show blood pressure 129/69, heart rate 87, respiratory rate 20, temp 97.9 F, and SpO2 of 97% on room air. CT abdomen and pelvis was completed showing marked distal small bowel obstruction secondary to a 5 cm segment of thickened small bowel wall possibly neoplastic or inflammatory in nature and an 8.5 mm sclerotic density in the upper sacrum which could represent a small bone island but if there is a primary neoplasm could represent metastatic disease. Labs were completed and reviewed. CBC unremarkable. BMP showing hyponatremia with sodium of 133 and metabolic alkalosis with chloride of 92, bicarb of 28, and anion gap of 13. BUN elevated at 53. Blood glucose 140. Liver profile showing elevated total bili of 1.5 otherwise normal findings. Amylase and lipase normal findings. Patient admitted under services with consultation to general surgery. Physical exam: Patient seen and fully evaluated at bedside this morning. She reports feeling much better than yesterday. Reports her pain is improved except upon palpation and states still having moderate to severe pain to umbilical region but only with palpation. She denies having any further episodes of nausea or vomiting, NG tube remains in place but is clamped at this time. Patient just completed ambulating up and down the easley. She denies passing flatus or bowel movement at this time. Vital signs reviewed and stable. General: Nontoxic, no distress and appears stated age. Derm: Skin warm and dry, normal coloration for ethnicity. Head: Atraumatic, normocephalic and symmetric. Eyes: EOM's intact, no lid lag, and anicteric sclera Mouth: no lip lesions, mucus membranes moist Cardiovascular: regular rate and rhythm with normal S1S2, systolic murmur, positive posterior tibial pulses bilaterally, and cap refill < 2 seconds. Lungs: Respirations even, regular, and unlabored on room air. Lungs CTA bilaterally, no rhonchi, no rales, no wheezing, and no accessory muscle usage. Abdominal: soft distended with tenderness upon palpation to umbilical region only, no guarding, no appreciable organomegaly. NG tube in place to low intermittent suction. Ext: ROM intact. No gross muscle atrophy, no edema, no contractures Neuro: Speech clear, face symmetrical and CN II-XII grossly intact with no noted focal neuro deficits. Parkinsonian tremor bilateral upper extremities worse in right upper extremity Psych: Alert and oriented to person, place, time, and situation. Appropriate and pleasant affect. Assessment and Plan of Care: Small bowel obstruction Intractable nausea and vomiting, secondary to above General Surgery following, discussed in detail with general surgery PA. -Continue NG tube to low intermittent suction. -Patient underwent small bowel follow-through, which reported resolving small bowel obstruction. -Symptomatic care and pain management. -Compazine 10 mg IVP as needed for nausea or vomiting. -Continue gentle IV fluid hydration with D5.45 at 100 cc/h -Glycemic protocol with Accu-Cheks every 6 hours while NPO. -NG tube and diet to be advanced per general surgery recommendations. Paroxysmal atrial fibrillation/flutter CAD Status post AICD placement -Patient no longer on anticoagulation states she was taken off by her PCP. Continue daily medication regimen with flecainide 100 mg every 12 hours and atenolol 25 mg twice daily. DVT prophylaxis with Lovenox. Parkinson's disease -Continue Neupro 8 mg every 24 hour patch transdermally Hypertension -Continue atenolol 25 mg twice daily and lisinoprilhydrochlorothiazide 20-12.5 mg daily. Hyperlipidemia -Continue pravastatin 10 mg daily. Data and imaging reviewed: Labs reviewed. CBC normocytic anemia with hemoglobin of 10.8. BMP unremarkable. Blood glucose 147. Magnesium 2.0. Liver profile unremarkable.. Magnesium 2.1. Liver profile unremarkable with exception of hypoalbuminemia with albumin of 3.6. Vital signs reviewed. Blood pressure 132/49, heart rate 71, respiratory rate 18, temp 97.8 F, and SpO2 of 96% on room air. CODE STATUS: Full code DVT prophylaxis: Lovenox Discussed with: Patient, patient's family at bedside, and general surgery PA Anticipated discharge date: Pending clinical course Anticipated discharge place: Pending clinical course Patient was seen independently by Nurse Practitioner. This document was prepared using [employer] dictation software. Please allow for errors in shipyard painter helper while rare they do occur. Leonardo Grover NP rendered care for this patient independently, reviewed the findings and plan as documented in the note above and agree with plan. I did not physically speak with or examine the patient on this date. Objective - Vital Signs Vital signs: Vital Signs Temp 97.8 F 01/22/25 08:05 Pulse 71 01/22/25 08:05 Resp 18 01/22/25 08:05 BP 132/49 01/22/25 08:05 Pulse Ox 96 01/22/25 08:05 FiO2 Intake & Output 01/21/25 01/22/25 01/22/25 18:59 06:59 18:59 Output Total 825 800 Balance -825 -800 Output: Gastric Drainage 825 450 Urine 350 Other: # Voids 5 1 # Bowel Movements 8 1 - Labs CBC & Chem 7: 01/22/25 04:31 01/22/25 04:31 Labs: Abnormal Lab Results - Last 24 Hours (Table) 01/21/25 01/21/25 01/22/25 Range/Units 12:12 17:10 00:06 POC Glucose (mg/dL) 134 H 111 H 140 H (70-110) mg/dL 01/22/25 Range/Units 06:03 POC Glucose (mg/dL) 143 H (70-110) mg/dL
[2025-01-22 17:23] LABS: Glucose,Whole Blood 116 mg/dL (70-110)
[2025-01-23 00:08] LABS: Glucose,Whole Blood 129 mg/dL (70-110)
[2025-01-23 06:15] LABS: Glucose,Whole Blood 124 mg/dL (70-110)
[2025-01-23 09:58] LABS: HCT 27.6 % (37.2-46.3); HGB 9.3 g/dL (12.0-15.0); MCH 29.4 pg (27.0-32.0); MCHC 33.7 g/dL (32.0-37.0); MCV 87.3 FL (80.0-97.0); NRBC Per 100 WBC 0 X 10*3/uL (0.00-0.01); Platelet Count 134 X 10*3/uL (140-440); RBC 3.16 X 10*6/uL (4.10-5.20); RDW 12.4 % (11.5-14.5); WBC 4.44 X 10*3/uL (4.50-10.00)
[2025-01-23 10:18] LABS: Magnesium 1.6 mg/dL (1.5-2.4)
[2025-01-23 10:30] LABS: ALT 11 U/L (8-44); AST 18 U/L (13-35); Alkaline Phosphatase 41 U/L (41-126); BUN/Creat Ratio 25.67 Ratio (12.00-20.00); Blood Urea Nitrogen 15.4 mg/dL (9.0-27.0); Calcium 7.5 mg/dL (8.7-10.3); Carbon Dioxide 25.4 mmol/L (21.6-31.8); Chloride 101 mmol/L (96-109); Globulin 1.5 g/dL (1.6-3.3); Glucose 259 mg/dL (70-110); Potassium 2.8 mmol/L (3.5-5.5); Sodium 134 mmol/L (135-145); Total Bilirubin 0.4 mg/dL (0.3-1.2); Total Protein 4.5 g/dL (6.2-8.2)
[2025-01-23 12:17] LABS: Glucose,Whole Blood 109 mg/dL (70-110)
[2025-01-23] MEDS: POTASSIUM CHLORIDE ER 20 MEQ TAB.ER PO SCH (13:19)
[2025-01-23] MEDS: MAGNESIUM SULFATE-D5W PMX 1 GM in DEXTROSE/WATER 1 100ML.BAG IVPB SCH (13:19)
--- NOTE | 2025-01-23 16:54 | P.PN ---
Subjective Progress Note Date: 01/23/25 Hospital course: Patient is a pleasant 79-year-old female with a past medical history of atrial fibrillation/flutter no longer on anticoagulation, CAD, AICD placement, hypertension, Parkinson's disease, lymphoma, and GERD. She presented to the emergency department with a chief complaint of intractable nausea and vomiting. Patient reports her last bowel movement was on 01/13/2025 and she began intractable vomiting on 01/15/2025 and has not been able to hold down any food or fluids since. In addition patient reports diffuse abdominal pain worse upon palpation. She denies having any fevers, chills, headache, lightheadedness, dizziness, chest pain, palpitations, shortness of breath, or experiencing any difficulties with her urinary function. Patient denies history of previous bowel obstruction but does report history of chronic constipation. Upon arrival to our facility, patient underwent evaluation in the emergency department. Vital signs upon arrival show blood pressure 129/69, heart rate 87, respiratory rate 20, temp 97.9 F, and SpO2 of 97% on room air. CT abdomen and pelvis was completed showing marked distal small bowel obstruction secondary to a 5 cm segment of thickened small bowel wall possibly neoplastic or inflammatory in nature and an 8.5 mm sclerotic density in the upper sacrum which could represent a small bone island but if there is a primary neoplasm could represent metastatic disease. Labs were completed and reviewed. CBC unremarkable. BMP showing hyponatremia with sodium of 133 and metabolic alkalosis with chloride of 92, bicarb of 28, and anion gap of 13. BUN elevated at 53. Blood glucose 140. Liver profile showing elevated total bili of 1.5 otherwise normal findings. Amylase and lipase normal findings. Patient admitted under services with consultation to general surgery. Physical exam: Patient seen and fully evaluated at bedside this morning. She reports feeling much better today. NG tube was removed yesterday and diet has been slowly advanced. Patient denies passing flatus but reports return of bowel movements yesterday afternoon. Patient reports she has been ambulating in the halls with plans to advance diet to regular diet this afternoon. Vital signs reviewed and stable. General: Nontoxic, no distress and appears stated age. Derm: Skin warm and dry, normal coloration for ethnicity. Head: Atraumatic, normocephalic and symmetric. Eyes: EOM's intact, no lid lag, and anicteric sclera Mouth: no lip lesions, mucus membranes moist Cardiovascular: regular rate and rhythm with normal S1S2, systolic murmur, positive posterior tibial pulses bilaterally, and cap refill < 2 seconds. Lungs: Respirations even, regular, and unlabored on room air. Lungs CTA bilaterally, no rhonchi, no rales, no wheezing, and no accessory muscle usage. Abdominal: soft nontender upon palpation, no guarding, no appreciable organomegaly. Ext: ROM intact. No gross muscle atrophy, no edema, no contractures Neuro: Speech clear, face symmetrical and CN II-XII grossly intact with no noted focal neuro deficits. Parkinsonian tremor bilateral upper extremities worse in right upper extremity Psych: Alert and oriented to person, place, time, and situation. Appropriate and pleasant affect. Assessment and Plan of Care: Small bowel obstruction Intractable nausea and vomiting, secondary to above General Surgery following, discussed in detail with general surgery PA. -NG tube was removed on 01/22/2025 -Patient underwent small bowel follow-through on 01/21/2025, which reported resolving small bowel obstruction. -Symptomatic care and pain management. -Compazine 10 mg IVP as needed for nausea or vomiting. -Patient tolerating full liquid diet with plans to advance to regular diet this afternoon, IV fluid discontinued at this time. Hypokalemia Hypomagnesemia Potassium 2.8 and magnesium 1.6. Orders placed for K-Dur 40 mEq p.o. every 2 hours x 2 doses and magnesium sulfate 2 g IVPB. Will continue to monitor closely with repeat morning labs to monitor for improvement/resolution of abnormal electrolyte values. Paroxysmal atrial fibrillation/flutter CAD Status post AICD placement -Patient no longer on anticoagulation states she was taken off by her PCP. Continue daily medication regimen with flecainide 100 mg every 12 hours and atenolol 25 mg twice daily. DVT prophylaxis with Lovenox. Parkinson's disease -Continue Neupro 8 mg every 24 hour patch transdermally Hypertension -Continue atenolol 25 mg twice daily and lisinoprilhydrochlorothiazide 20-12.5 mg daily. Hyperlipidemia -Continue pravastatin 10 mg daily. Data and imaging reviewed: Labs reviewed. CBC showing pancytopenia with WBC count of 4.44, hemoglobin of 9.3, and platelet count of 134. BMP showing hyponatremia with sodium of 134 and hypokalemia with potassium of 2.8. Blood glucose 259. Magnesium 1.6. Vital signs reviewed. Blood pressure 135/54, heart rate 60, respiratory rate 16, temp 98.1 F, and SpO2 of 97% on room air. CODE STATUS: Full code DVT prophylaxis: Lovenox Discussed with: Patient, patient's family at bedside, and general surgeon Anticipated discharge date: Pending clinical course Anticipated discharge place: Pending clinical course Patient was seen independently by Nurse Practitioner. This document was prepared using [employer] dictation software. Please allow for errors in compensation intern while rare they do occur. Leonardo Grover NP rendered care for this patient independently, reviewed the findings and plan as documented in the note above and agree with plan. I did not physically speak with or examine the patient on this date. Objective - Vital Signs Vital signs: Vital Signs Temp 98.1 F 01/23/25 07:20 Pulse 60 01/23/25 07:20 Resp 16 01/23/25 07:20 BP 135/54 01/23/25 07:20 Pulse Ox 97 01/23/25 07:20 FiO2 Intake & Output 01/22/25 01/23/25 01/23/25 18:59 06:59 18:59 Intake Total 1080 240 Balance 1080 240 Weight 54.431 kg Intake: Oral 1080 240 Other: # Voids 5 1 # Bowel Movements 1 1 - Labs CBC & Chem 7: 01/23/25 05:26 01/23/25 05:26 Labs: Abnormal Lab Results - Last 24 Hours (Table) 01/22/25 01/22/25 01/22/25 Range/Units 04:31 04:31 11:49 RBC 3.74 L (4.10-5.20) X 10*6/uL Hgb 10.8 L (12.0-15.0) g/dL Hct 32.9 L (37.2-46.3) % BUN/Creatinine Ratio 31.25 H (12.00-20.00) Ratio Glucose 147 H (70-110) mg/dL POC Glucose (mg/dL) 133 H (70-110) mg/dL Calcium 8.3 L (8.7-10.3) mg/dL Total Protein 5.3 L (6.2-8.2) g/dL Albumin 3.4 L (3.8-4.9) g/dL 01/22/25 01/23/25 01/23/25 Range/Units 17:22 00:05 06:13 RBC (4.10-5.20) X 10*6/uL Hgb (12.0-15.0) g/dL Hct (37.2-46.3) % BUN/Creatinine Ratio (12.00-20.00) Ratio Glucose (70-110) mg/dL POC Glucose (mg/dL) 116 H 129 H 124 H (70-110) mg/dL Calcium (8.7-10.3) mg/dL Total Protein (6.2-8.2) g/dL Albumin (3.8-4.9) g/dL
--- NOTE | 2025-01-23 22:10 | P.PN ---
Subjective Patient seen and evaluated at bedside. Patient doing well, denies significant abdominal pain, nausea or vomiting. passing flatus and having bowel movements. Objective - Vital Signs Vital signs: Vital Signs Temp 97.8 F 01/23/25 19:23 Pulse 67 01/23/25 19:23 Resp 16 01/23/25 19:23 BP 121/65 01/23/25 19:23 Pulse Ox 97 01/23/25 19:23 FiO2 Intake & Output 01/23/25 01/23/25 01/24/25 06:59 18:59 06:59 Intake Total 1560 240 Balance 1560 240 Intake: Oral 1560 240 Other: Voiding Method Bedside Commode # Voids 1 5 2 # Bowel Movements 1 3 2 - Exam gen: nad cv: rrr pul: non labored breathing abd: soft, non distended, non tender to palpation, no guarding or rebound tenderness - Labs CBC & Chem 7: 01/23/25 05:26 01/23/25 05:26 Labs: Abnormal Lab Results - Last 24 Hours (Table) 01/23/25 01/23/25 01/23/25 Range/Units 00:05 05:26 05:26 WBC 4.44 L (4.50-10.00) X 10*3/uL RBC 3.16 L (4.10-5.20) X 10*6/uL Hgb 9.3 L (12.0-15.0) g/dL Hct 27.6 L (37.2-46.3) % Plt Count 134 L (140-440) X 10*3/uL Sodium 134 L (135-145) mmol/L Potassium 2.8 L (3.5-5.5) mmol/L BUN/Creatinine Ratio 25.67 H (12.00-20.00) Ratio Glucose 259 H (70-110) mg/dL POC Glucose (mg/dL) 129 H (70-110) mg/dL Calcium 7.5 L (8.7-10.3) mg/dL Total Protein 4.5 L (6.2-8.2) g/dL Albumin 3.0 L (3.8-4.9) g/dL Globulin 1.5 L (1.6-3.3) g/dL 01/23/25 Range/Units 06:13 WBC (4.50-10.00) X 10*3/uL RBC (4.10-5.20) X 10*6/uL Hgb (12.0-15.0) g/dL Hct (37.2-46.3) % Plt Count (140-440) X 10*3/uL Sodium (135-145) mmol/L Potassium (3.5-5.5) mmol/L BUN/Creatinine Ratio (12.00-20.00) Ratio Glucose (70-110) mg/dL POC Glucose (mg/dL) 124 H (70-110) mg/dL Calcium (8.7-10.3) mg/dL Total Protein (6.2-8.2) g/dL Albumin (3.8-4.9) g/dL Globulin (1.6-3.3) g/dL Assessment and Plan Assessment: having bowel function, will remove nasogastric tube and observe regular diet Time with Patient: Less than 30
[2025-01-24 09:31] LABS: HCT 29.9 % (37.2-46.3); HGB 10.2 g/dL (12.0-15.0); MCH 29.2 pg (27.0-32.0); MCHC 34.1 g/dL (32.0-37.0); MCV 85.7 FL (80.0-97.0); Mean Platelet Volume 11.4 FL (9.5-12.2); NRBC Per 100 WBC 0 X 10*3/uL (0.00-0.01); Platelet Count 162 X 10*3/uL (140-440); RBC 3.49 X 10*6/uL (4.10-5.20); RDW 12.6 % (11.5-14.5); WBC 4.61 X 10*3/uL (4.50-10.00)
[2025-01-24 11:54] LABS: Magnesium 1.8 mg/dL (1.5-2.4)
[2025-01-24] MEDS: IBUPROFEN 400 MG TAB PO PRN (11:58)
[2025-01-24 12:11] LABS: ALT 21 U/L (8-44); AST 30 U/L (13-35); Albumin 3.2 g/dL (3.8-4.9); Alkaline Phosphatase 50 U/L (41-126); BUN/Creat Ratio 16.71 Ratio (12.00-20.00); Blood Urea Nitrogen 11.7 mg/dL (9.0-27.0); Carbon Dioxide 22.9 mmol/L (21.6-31.8); Chloride 105 mmol/L (96-109); Globulin 1.6 g/dL (1.6-3.3); Glucose 103 mg/dL (70-110); Sodium 136 mmol/L (135-145); Total Bilirubin 0.4 mg/dL (0.3-1.2); Total Protein 4.8 g/dL (6.2-8.2)
--- NOTE | 2025-01-24 18:09 | P.PN ---
Subjective Patient seen and evaluated at bedside. Patient doing well, denies significant abdominal pain, nausea or vomiting. passing flatus and having bowel movements. Objective - Vital Signs Vital signs: Vital Signs Temp 98.2 F 01/24/25 14:00 Pulse 67 01/24/25 14:00 Resp 17 01/24/25 14:00 BP 122/66 01/24/25 14:00 Pulse Ox 98 01/24/25 14:00 FiO2 Intake & Output 01/23/25 01/24/25 01/24/25 18:59 06:59 18:59 Intake Total 1560 240 Balance 1560 240 Intake: Oral 1560 240 Other: Voiding Method Bedside Commode Toilet # Voids 5 1 # Bowel Movements 3 2 - Exam gen: nad cv: rrr pul: non labored breathing abd: soft, non distended, non tender to palpation, no guarding or rebound tenderness - Labs CBC & Chem 7: 01/24/25 05:34 01/24/25 05:34 Labs: Abnormal Lab Results - Last 24 Hours (Table) 01/24/25 01/24/25 Range/Units 05:34 05:34 RBC 3.49 L (4.10-5.20) X 10*6/uL Hgb 10.2 L (12.0-15.0) g/dL Hct 29.9 L (37.2-46.3) % Calcium 8.0 L (8.7-10.3) mg/dL Total Protein 4.8 L (6.2-8.2) g/dL Albumin 3.2 L (3.8-4.9) g/dL Assessment and Plan Assessment: having bowel function, will remove nasogastric tube and observe regular diet stable for discharge May benefit from physical therapy Time with Patient: Less than 30
--- NOTE | 2025-01-24 18:20 | P.PN ---
Subjective Progress Note Date: 01/24/25 Hospital course: Patient is a pleasant 79-year-old female with a past medical history of atrial fibrillation/flutter no longer on anticoagulation, CAD, AICD placement, hypertension, Parkinson's disease, lymphoma, and GERD. She presented to the emergency department with a chief complaint of intractable nausea and vomiting. Patient reports her last bowel movement was on 01/13/2025 and she began intractable vomiting on 01/15/2025 and has not been able to hold down any food or fluids since. In addition patient reports diffuse abdominal pain worse upon palpation. She denies having any fevers, chills, headache, lightheadedness, dizziness, chest pain, palpitations, shortness of breath, or experiencing any difficulties with her urinary function. Patient denies history of previous bowel obstruction but does report history of chronic constipation. Upon arrival to our facility, patient underwent evaluation in the emergency department. Vital signs upon arrival show blood pressure 129/69, heart rate 87, respiratory rate 20, temp 97.9 F, and SpO2 of 97% on room air. CT abdomen and pelvis was completed showing marked distal small bowel obstruction secondary to a 5 cm segment of thickened small bowel wall possibly neoplastic or inflammatory in nature and an 8.5 mm sclerotic density in the upper sacrum which could represent a small bone island but if there is a primary neoplasm could represent metastatic disease. Labs were completed and reviewed. CBC unremarkable. BMP showing hyponatremia with sodium of 133 and metabolic alkalosis with chloride of 92, bicarb of 28, and anion gap of 13. BUN elevated at 53. Blood glucose 140. Liver profile showing elevated total bili of 1.5 otherwise normal findings. Amylase and lipase normal findings. Patient admitted under services with consultation to general surgery. Physical exam: Patient seen and fully evaluated at bedside this morning. She reports feeling great. She continues to have bowel movements and is tolerating oral intake with regular diet with no episodes of nausea or vomiting. Patient does have increased weakness and difficulty with ambulation. She remains unable to sit herself up or get out of bed without assistance and only able to walk short distances at this time. Discussed physical therapy recommendations for SNF placement and patient and family in agreement. Vital signs reviewed and stable. General: Nontoxic, no distress and appears stated age. Derm: Skin warm and dry, normal coloration for ethnicity. Head: Atraumatic, normocephalic and symmetric. Eyes: EOM's intact, no lid lag, and anicteric sclera Mouth: no lip lesions, mucus membranes moist Cardiovascular: regular rate and rhythm with normal S1S2, systolic murmur, positive posterior tibial pulses bilaterally, and cap refill < 2 seconds. Lungs: Respirations even, regular, and unlabored on room air. Lungs CTA b ilaterally, no rhonchi, no rales, no wheezing, and no accessory muscle usage. Abdominal: soft nontender upon palpation, no guarding, no appreciable organomegaly. Ext: ROM intact. No gross muscle atrophy, no edema, no contractures Neuro: Speech clear, face symmetrical and CN II-XII grossly intact with no noted focal neuro deficits. Parkinsonian tremor bilateral upper extremities worse in right upper extremity Psych: Alert and oriented to person, place, time, and situation. Appropriate and pleasant affect. Assessment and Plan of Care: Small bowel obstruction, resolved with conservative measures Intractable nausea and vomiting, secondary to above General Surgery following, discussed in detail with general surgery PA. -NG tube was removed on 01/22/2025 -Patient underwent small bowel follow-through on 01/21/2025, which reported resolving small bowel obstruction. -Symptomatic care and pain management. -Compazine 10 mg IVP as needed for nausea or vomiting. -Patient tolerating regular diet. Hypokalemia, resolved Hypomagnesemia, resolved Paroxysmal atrial fibrillation/flutter CAD Status post AICD placement -Patient no longer on anticoagulation states she was taken off by her PCP. Continue daily medication regimen with flecainide 100 mg every 12 hours and atenolol 25 mg twice daily. DVT prophylaxis with Lovenox. Parkinson's disease -Continue Neupro 8 mg every 24 hour patch transdermally Hypertension -Continue atenolol 25 mg twice daily and lisinoprilhydrochlorothiazide 20-12.5 mg daily. Hyperlipidemia -Continue pravastatin 10 mg daily. Data and imaging reviewed: Labs reviewed. CBC showing normocytic anemia with hemoglobin stable at 10.2. BMP unremarkable showing resolution of hypokalemia with potassium of 4.0. Blood glucose 103. Magnesium 1.8. Vital signs reviewed. Blood pressure 146/65, heart rate 62, respiratory rate 16, temp 98.4 F, and SpO2 of 100% on room air CODE STATUS: Full code DVT prophylaxis: Lovenox Discussed with: Patient, patient's family at bedside, and general surgeon Anticipated discharge date: Likely within the next 24 hours, pending placement and insurance authorization for SNF Anticipated discharge place: SNF Patient was seen independently by Nurse Practitioner. This document was prepared using El[employer] dictation software. Please allow for errors in flume maker while rare they do occur. Leonardo Grover MECHANICS SUPERVISOR rendered care for this patient independently, reviewed the findings and plan as documented in the note above and agree with plan. I did not physically speak with or examine the patient on this date. Objective - Vital Signs Vital signs: Vital Signs Temp 98.4 F 01/24/25 07:18 Pulse 62 01/24/25 07:18 Resp 16 01/24/25 07:18 BP 146/65 01/24/25 07:18 Pulse Ox 100 01/24/25 07:18 FiO2 Intake & Output 01/23/25 01/24/25 01/24/25 18:59 06:59 18:59 Intake Total 1560 240 Balance 1560 240 Intake: Oral 1560 240 Other: Voiding Method Bedside Commode # Voids 5 1 # Bowel Movements 3 2 - Labs CBC & Chem 7: 01/24/25 05:34 01/24/25 05:34 Labs: Abnormal Lab Results - Last 24 Hours (Table) 01/23/25 01/23/25 01/24/25 Range/Units 05:26 05:26 05:34 WBC 4.44 L (4.50-10.00) X 10*3/uL RBC 3.16 L 3.49 L (4.10-5.20) X 10*6/uL Hgb 9.3 L 10.2 L (12.0-15.0) g/dL Hct 27.6 L 29.9 L (37.2-46.3) % Plt Count 134 L (140-440) X 10*3/uL Sodium 134 L (135-145) mmol/L Potassium 2.8 L (3.5-5.5) mmol/L BUN/Creatinine Ratio 25.67 H (12.00-20.00) Ratio Glucose 259 H (70-110) mg/dL Calcium 7.5 L (8.7-10.3) mg/dL Total Protein 4.5 L (6.2-8.2) g/dL Albumin 3.0 L (3.8-4.9) g/dL Globulin 1.5 L (1.6-3.3) g/dL
[2025-01-25] MEDS: ALPRAZolam 0.5 MG TAB PO STA (10:04)
--- NOTE | 2025-01-25 13:28 | P.PN ---
Subjective Progress Note Date: 01/25/25 SURGICAL PROGRESS NOTE CHIEF COMPLAINT: Small bowel obstruction HISTORY OF PRESENT ILLNESS: Patient is sitting up at bedside chair. She reports her pain is improved. She is having bowel movements and flatus. Denies any nausea or vomiting. Tolerating regular diet. Patient reports overall feeling weak. They are working on ECF placement. Afebrile. WBC 4.61 PHYSICAL EXAM: VITAL SIGNS: Reviewed. GENERAL: Awake and alert. No acute distress ABDOMEN: Soft. Nondistended. ASSESSMENT: 1. Small bowel obstruction resolved 2. Prior history of abdominal surgeries PLAN: -Continue regular diet -Senokot plus added for stool softener -Patient can be discharged from surgical standpoint. Awaiting ECF placement. -Increase activity level Physician Floor Cashier note has been reviewed by physician. Signing provider agrees with the documented findings, assessment, and plan of care. Attestation Patient seen and examined at bedside. Abdominal pain appears to have resolved. Tolerating diet. Having bowel function. Recommend continuing stool softener. Surgically stable for discharge. Elidia Montana DO Objective - Vital Signs Vital signs: Vital Signs Temp 97.7 F 01/25/25 06:11 Pulse 73 01/25/25 06:11 Resp 16 01/25/25 06:11 BP 145/64 01/25/25 06:11 Pulse Ox 98 01/25/25 06:11 FiO2 Intake & Output 01/24/25 01/25/25 01/25/25 18:59 06:59 18:59 Intake Total 540 Balance 540 Intake: Oral 540 Other: Voiding Method Toilet Toilet Toilet # Voids 2 3 - Labs CBC & Chem 7: 01/24/25 05:34 01/24/25 05:34
[2025-01-25] MEDS: SENNOSIDES-DOCUSATE SODIUM 1 EACH TAB PO SCH (13:32)
--- NOTE | 2025-01-25 13:49 | P.PN ---
Subjective Progress Note Date: 01/25/25 Hospital course: Patient is a pleasant 79-year-old female with a past medical history of atrial fibrillation/flutter no longer on anticoagulation, CAD, AICD placement, hypertension, Parkinson's disease, lymphoma, and GERD. She presented to the emergency department with a chief complaint of intractable nausea and vomiting. Patient reports her last bowel movement was on 01/13/2025 and she began intractable vomiting on 01/15/2025 and has not been able to hold down any food or fluids since. In addition patient reports diffuse abdominal pain worse upon palpation. She denies having any fevers, chills, headache, lightheadedness, dizziness, chest pain, palpitations, shortness of breath, or experiencing any difficulties with her urinary function. Patient denies history of previous bowel obstruction but does report history of chronic constipation. Upon arrival to our facility, patient underwent evaluation in the emergency department. Vital signs upon arrival show blood pressure 129/69, heart rate 87, respiratory rate 20, temp 97.9 F, and SpO2 of 97% on room air. CT abdomen and pelvis was completed showing marked distal small bowel obstruction secondary to a 5 cm segment of thickened small bowel wall possibly neoplastic or inflammatory in nature and an 8.5 mm sclerotic density in the upper sacrum which could represent a small bone island but if there is a primary neoplasm could represent metastatic disease. Labs were completed and reviewed. CBC unremarkable. BMP showing hyponatremia with sodium of 133 and metabolic alkalosis with chloride of 92, bicarb of 28, and anion gap of 13. BUN elevated at 53. Blood glucose 140. Liver profile showing elevated total bili of 1.5 otherwise normal findings. Amylase and lipase normal findings. Patient admitted under services with consultation to general surgery. Physical exam: Patient seen and fully evaluated at bedside this morning. She reports feeling well this morning. Patient's daughter also at bedside. Patient has been accepted to SNF at [facility]. [facility] does not have a bed available until tomorrow morning. Plan is for discharge tomorrow morning. Answered all patient's and family's questions at bedside. Patient denies having any new or further complaints, concerns, or needs at this time. Vital signs reviewed and stable. General: Nontoxic, no distress and appears stated age. Derm: Skin warm and dry, normal coloration for ethnicity. Head: Atraumatic, normocephalic and symmetric. Eyes: EOM's intact, no lid lag, and anicteric sclera Mouth: no lip lesions, mucus membranes moist Cardiovascular: regular rate and rhythm with normal S1S2, systolic murmur, positive posterior tibial pulses bilaterally, and cap refill < 2 seconds. Lungs: Respirations even, regular, and unlabored on room air. Lungs CTA bilaterally, no rhonchi, no rales, no wheezing, and no accessory muscle usage. Abdominal: soft nontender upon palpation, no guarding, no appreciable organomegaly. Ext: ROM intact. No gross muscle atrophy, no edema, no contractures Neuro: Speech clear, face symmetrical and CN II-XII grossly intact with no noted focal neuro deficits. Parkinsonian tremor bilateral upper extremities worse in right upper extremity Psych: Alert and oriented to person, place, time, and situation. Appropriate and pleasant affect. Assessment and Plan of Care: Small bowel obstruction, resolved with conservative measures Intractable nausea and vomiting, secondary to above General Surgery following, discussed in detail with general surgery PA. -NG tube was removed on 01/22/2025 -Patient underwent small bowel follow-through on 01/21/2025, which reported resolving small bowel obstruction. -Symptomatic care and pain management. -Compazine 10 mg IVP as needed for nausea or vomiting. -Patient tolerating regular diet. Hypokalemia, resolved Hypomagnesemia, resolved Paroxysmal atrial fibrillation/flutter CAD Status post AICD placement -Patient no longer on anticoagulation states she was taken off by her PCP. Co ntinue daily medication regimen with flecainide 100 mg every 12 hours and atenolol 25 mg twice daily. DVT prophylaxis with Lovenox. Parkinson's disease -Continue Neupro 8 mg every 24 hour patch transdermally Hypertension -Continue atenolol 25 mg twice daily and lisinoprilhydrochlorothiazide 20-12.5 mg daily. Hyperlipidemia -Continue pravastatin 10 mg daily. Data and imaging reviewed: Labs reviewed. CBC showing normocytic anemia with hemoglobin stable at 10.2. BMP unremarkable showing resolution of hypokalemia with potassium of 4.0. Blood glucose 103. Magnesium 1.8. Vital signs reviewed. Blood pressure 146/64, heart rate 63, respiratory rate 16, temp 97.7 F, and SpO2 of 98% on room air CODE STATUS: Full code DVT prophylaxis: Lovenox Discussed with: Patient, patient's family at bedside, and general surgeon Anticipated discharge date/place: Patient has been accepted to SNF and will have a bed tomorrow, plan is for discharge tomorrow to [facility] Patient was seen independently by Nurse Practitioner. This document was prepared using X[employer] dictation software. Please allow for errors in electrical continuity inspector while rare they do occur. Leonardo Grover CREPE SOLE WIRE BRUSHER rendered care for this patient independently, reviewed the findings and plan as documented in the note above and agree with plan. I did not physically speak with or examine the patient on this date. Objective - Vital Signs Vital signs: Vital Signs Temp 97.7 F 01/25/25 06:11 Pulse 73 01/25/25 06:11 Resp 16 01/25/25 06:11 BP 145/64 01/25/25 06:11 Pulse Ox 98 01/25/25 06:11 FiO2 Intake & Output 01/24/25 01/25/25 01/25/25 18:59 06:59 18:59 Intake Total 540 Balance 540 Intake: Oral 540 Other: Voiding Method Toilet Toilet Toilet # Voids 2 3 - Labs CBC & Chem 7: 01/24/25 05:34 01/24/25 05:34 Labs: Abnormal Lab Results - Last 24 Hours (Table) 01/24/25 Range/Units 05:34 Calcium 8.0 L (8.7-10.3) mg/dL Total Protein 4.8 L (6.2-8.2) g/dL Albumin 3.2 L (3.8-4.9) g/dL
[2025-01-26 07:50] VITALS: BP 133/68; PULSE 68; RESP 15; TEMP 97.6
[2025-01-26 08:56] LABS: Magnesium 1.8 mg/dL (1.5-2.4)
[2025-01-26 09:06] LABS: ALT 60 U/L (8-44); AST 72 U/L (13-35); Albumin 3.7 g/dL (3.8-4.9); Albumin/Globulin Ratio 1.68 Ratio (1.60-3.17); Alkaline Phosphatase 66 U/L (41-126); BUN/Creat Ratio 24.57 Ratio (12.00-20.00); Blood Urea Nitrogen 17.2 mg/dL (9.0-27.0); Calcium 8.8 mg/dL (8.7-10.3); Carbon Dioxide 29.4 mmol/L (21.6-31.8); Chloride 99 mmol/L (96-109); Globulin 2.2 g/dL (1.6-3.3); Glucose 107 mg/dL (70-110); Potassium 4.1 mmol/L (3.5-5.5); Sodium 137 mmol/L (135-145); Total Bilirubin 0.4 mg/dL (0.3-1.2); Total Protein 5.9 g/dL (6.2-8.2)
[2025-01-26 09:10] LABS: HCT 35.1 % (37.2-46.3); HGB 11.8 g/dL (12.0-15.0); MCH 29.6 pg (27.0-32.0); MCHC 33.6 g/dL (32.0-37.0); Mean Platelet Volume 11.5 FL (9.5-12.2); NRBC Per 100 WBC 0 X 10*3/uL (0.00-0.01); Platelet Count 207 X 10*3/uL (140-440); RBC 3.99 X 10*6/uL (4.10-5.20); RDW 12.6 % (11.5-14.5); WBC 8.05 X 10*3/uL (4.50-10.00)
--- NOTE | 2025-01-26 09:55 | P.DS ---
Providers Date of admission: 01/19/25 16:28 Expected date of discharge: 01/26/25 Attending physician: Stiven Singer Consults: 01/19/25 16:27 Consult Physician Urgent Consulting Provider: Lonnie Veras Consult Reason/Comments: Small bowel obstruction Do you want consulting provider notified?: Yes Primary care physician: [facility] Course: Discharge Diagnosis: Small bowel obstruction, resolved with conservative measures Intractable nausea and vomiting, secondary to above and resolved with resolution of obstruction. Hypokalemia, resolved Hypomagnesemia, resolved Paroxysmal atrial fibrillation/flutter. Patient no longer on anticoagulation states she was taken off by her PCP. Continue daily medication regimen with flecainide 100 mg every 12 hours and atenolol 25 mg twice daily. CAD Status post AICD placement Parkinson's disease. Continue Neupro 8 mg every 24 hour patch transdermally Hypertension. Continue atenolol 25 mg twice daily and lisinoprilhydrochlorothiazide 20-12.5 mg daily. Hyperlipidemia. Continue pravastatin 10 mg daily. Hospital course: Patient is a pleasant 79-year-old female with a past medical history of atrial fibrillation/flutter no longer on anticoagulation, CAD, AICD placement, hypertension, Parkinson's disease, lymphoma, and GERD. She presented to the emergency department with a chief complaint of intractable nausea and vomiting. Patient reports her last bowel movement was on 01/13/2025 and she began intractable vomiting on 01/15/2025 and has not been able to hold down any food or fluids since. In addition patient reports diffuse abdominal pain worse upon palpation. She denies having any fevers, chills, headache, lightheadedness, dizziness, chest pain, palpitations, shortness of breath, or experiencing any difficulties with her urinary function. Patient denies history of previous bowel obstruction but does report history of chronic constipation. Upon arrival to our facility, patient underwent evaluation in the emergency department. Vital signs upon arrival show blood pressure 129/69, heart rate 87, respiratory rate 20, temp 97.9 F, and SpO2 of 97% on room air. CT abdomen and pelvis was completed showing marked distal small bowel obstruction secondary to a 5 cm segment of thickened small bowel wall possibly neoplastic or inflammatory in nature and an 8.5 mm sclerotic density in the upper sacrum which could represent a small bone island but if there is a primary neoplasm could represent metastatic disease. Labs were completed and reviewed. CBC unremarkable. BMP showing hyponatremia with sodium of 133 and metabolic alkalosis with chloride of 92, bicarb of 28, and anion gap of 13. BUN elevated at 53. Blood glucose 140. Liver profile showing elevated total bili of 1.5 otherwise normal findings. Amylase and lipase normal findings. Patient admitted under services with consultation to general surgery. NG tube was placed and patient was placed on bowel rest for conservative treatment of small bowel obstruction. Abdominal pain, nausea, and vomiting resolving. Small bowel follow-through showing resolution of small bowel obstruction. NG tube was removed and diet slowly advanced. Patient did suffer from weakness secondary to prolonged hospitalization and underlying comorbidities. She was evaluated by PT/OT recommending SNF placement for rehab. Patient has been accepted to [facility] SNF and is medically optimized for discharge at this time. Physical exam: Vital signs reviewed and stable. General: Nontoxic, no distress and appears stated age. Derm: Skin warm and dry, normal coloration for ethnicity. Head: Atraumatic, normocephalic and symmetric. Eyes: EOM's intact, no lid lag, and anicteric sclera Mouth: no lip lesions, mucus membranes moist Cardiovascular: regular rate and rhythm with normal S1S2, systolic murmur, positive posterior tibial pulses bilaterally, and cap refill < 2 seconds. Lungs: Respirations even, regular, and unlabored on room air. Lungs CTA bilaterally, no rhonchi, no rales, no wheezing, and no accessory muscle usage. Abdominal: soft nontender upon palpation, no guarding, no appreciable organomegaly. Ext: ROM intact. No gross muscle atrophy, no edema, no contractures Neuro: Speech clear, face symmetrical and CN II-XII grossly intact with no noted focal neuro deficits. Parkinsonian tremor bilateral upper extremities worse in right upper extremity Psych: Alert and oriented to person, place, time, and situation. Appropriate and pleasant affect. A total of 34 minutes of time were spent preparing this complex discharge summary. Pt was discharged on 01/26/2025 at 9:52 AM. Patient was seen independently by Nurse Practitioner. This document was prepared using [employer] dictation software. Please allow for errors in glaze carrier while rare they do occur. Leonardo Grover NP rendered care for this patient independently, reviewed the findings and plan as documented in the note above. I did not physically speak with or examine the patient on this date. Patient Condition at Discharge: Stable Plan - Discharge Summary Discharge Rx Participant: No New Discharge Prescriptions: New Ibuprofen [Motrin] 400 mg PO Q6HR PRN tab PRN Reason: Pain Sennosides-Docusate Sodium [Senokot-S] 1 each PO DAILY tab ALPRAZolam [Xanax] 0.5 mg PO BID PRN #4 tab PRN Reason: Anxiety Continue Omeprazole [PriLOSEC] 20 mg PO DAILY Lisinopril-Hctz 20-12.5 mg [Zestoretic 20-12.5] 1 tab PO DAILY Flecainide [Tambocor] 100 mg PO Q12HR #30 tab Pravastatin Sodium [Pravachol] 10 mg PO DAILY Meclizine [Antivert] 12.5 mg PO TID PRN PRN Reason: Vertigo Aspirin EC [Ecotrin Low Dose] 81 mg PO DAILY Rotigotine (Neupro) 8mg/24 Hour Patch 1 patch TRANSDERM DAILY atenoloL [Tenormin] 25 mg PO BID Ondansetron [Ondansetron ODT] 4 mg PO BID PRN PRN Reason: Nausea Multivit with Calcium,Iron,Min [Women's Multivitamin] 1 tab PO DAILY Discharge Medication List Lisinopril-Hctz 20-12.5 mg [Zestoretic 20-12.5] 1 tab PO DAILY 04/06/14 [History] Omeprazole [PriLOSEC] 20 mg PO DAILY 04/06/14 [History] Flecainide [Tambocor] 100 mg PO Q12HR #30 tab 04/08/14 [Rx] Aspirin EC [Ecotrin Low Dose] 81 mg PO DAILY 01/19/25 [History] Meclizine [Antivert] 12.5 mg PO TID PRN 01/19/25 [History] Multivit with Calcium,Iron,Min [Women's Multivitamin] 1 tab PO DAILY 01/19/25 [History] Ondansetron [Ondansetron ODT] 4 mg PO BID PRN 01/19/25 [History] Pravastatin Sodium [Pravachol] 10 mg PO DAILY 01/19/25 [History] Rotigotine (Neupro) 8mg/24 Hour Patch 1 patch TRANSDERM DAILY 01/19/25 [History] atenoloL [Tenormin] 25 mg PO BID 01/19/25 [History] ALPRAZolam [Xanax] 0.5 mg PO BID PRN #4 tab 01/26/25 [Rx] Ibuprofen [Motrin] 400 mg PO Q6HR PRN tab 01/26/25 [Rx] Sennosides-Docusate Sodium [Senokot-S] 1 each PO DAILY tab 01/26/25 [Rx] Follow up Appointment(s)/Referral(s): Nathaniel Bermudez MD [Primary Care Provider] - 1-2 days Lonnie Veras DO [Doctor of Osteopathic Medicine] - 1 Week [facility], [NON-STAFF] - As Needed ( [facility] will call to schedule start of care after discharge) Patient Instructions/Handouts: Bowel Obstruction (DC) Activity/Diet/Wound Care/Special Instructions: Activity: As tolerated. Take breaks as needed. Diet: Heart healthy and carb consistent diet. Avoid salts, or foods with hidden salts such as canned or boxed foods and frozen dinners. Extra salt makes your heart work harder and traps the fluid in your body for longer. Special Instructions: Take all of your medications as directed and remember to keep all of your doctor's appointments and follow-up as needed. Thank you for allowing us to participate in your care, it was truly a pleasure having you for our patient!!! . Discharge Disposition: TRANSFER TO SNF/ECF
[2025-01-26] MEDS ORDERED: ALPRAZolam 0.5 MG TAB PO PRN (10:09)
--- NOTE | 2025-01-26 11:25 | P.PN ---
Subjective Progress Note Date: 01/26/25 SURGICAL PROGRESS NOTE CHIEF COMPLAINT: Small bowel obstruction HISTORY OF PRESENT ILLNESS: Patient is sitting up at bedside chair. She reports her pain is improved. She had bowel movements yesterday. She is having flatus. She is scheduled for ECF placement today. Vital stable. PHYSICAL EXAM: VITAL SIGNS: Reviewed. GENERAL: Awake and alert. No acute distress ABDOMEN: Soft. Nondistended. ASSESSMENT: 1. Small bowel obstruction resolved 2. Prior history of abdominal surgeries PLAN: -Patient can be discharged from surgical standpoint -Continue stool softener at discharge Physician Intermodal Dispatcher note has been reviewed by physician. Signing provider agrees with the documented findings, assessment, and plan of care. Objective - Vital Signs Vital signs: Vital Signs Temp 97.6 F 01/26/25 07:48 Pulse 68 01/26/25 07:48 Resp 15 01/26/25 07:48 BP 133/68 01/26/25 07:48 Pulse Ox 98 01/26/25 07:48 FiO2 Intake & Output 01/25/25 01/26/25 01/26/25 18:59 06:59 18:59 Intake Total 540 Balance 540 Weight 54.431 kg Intake: Oral 540 Other: Voiding Method Toilet Toilet # Voids 3 2 2 # Bowel Movements 1 1 1 - Labs CBC & Chem 7: 01/26/25 04:28 01/26/25 04:28 Labs: Abnormal Lab Results - Last 24 Hours (Table) 01/26/25 01/26/25 Range/Units 04:28 04:28 RBC 3.99 L (4.10-5.20) X 10*6/uL Hgb 11.8 L (12.0-15.0) g/dL Hct 35.1 L (37.2-46.3) % BUN/Creatinine Ratio 24.57 H (12.00-20.00) Ratio AST 72 H (13-35) U/L ALT 60 H (8-44) U/L Total Protein 5.9 L (6.2-8.2) g/dL Albumin 3.7 L (3.8-4.9) g/dL
== END 2025-01-26 11:11 | DRG 389 ==
LOC: EC 13:30 → 5NMEDONC 16:28
PROVIDERS: ADMIT Student in an Organized Health Care Education/Training Program; ATTEND Student in an Organized Health Care Education/Training Program
DX: K56.609 Unspecified intestinal obstruction, unspecified as to partial versus complete obstruction (principal); E87.1 Hypo-osmolality and hyponatremia; E87.3 Alkalosis; G20.A1 Parkinson's disease without dyskinesia, without mention of fluctuations; I10 Essential (primary) hypertension; I48.92 Unspecified atrial flutter; I48.0 Paroxysmal atrial fibrillation; Z79.01 Long term (current) use of anticoagulants; E78.5 Hyperlipidemia, unspecified; E83.42 Hypomagnesemia; E87.6 Hypokalemia; K59.09 Other constipation; I25.10 Atherosclerotic heart disease of native coronary artery without angina pectoris; Z79.82 Long term (current) use of aspirin; Z79.899 Other long term (current) drug therapy; Z82.49 Family history of ischemic heart disease and other diseases of the circulatory system; Z85.72 Personal history of non-Hodgkin lymphomas; Z90.49 Acquired absence of other specified parts of digestive tract; Z90.710 Acquired absence of both cervix and uterus; Z95.810 Presence of automatic (implantable) cardiac defibrillator; Z88.1 Allergy status to other antibiotic agents
CPT/HCPCS: 36415; 74176; 74250; 80053; 82150; 83690; 83735; 85025; 85027; 93005; 96361; 96374; 99285